=== PATIENT | male | born 1975 | race Caucasian/White ===

== ENCOUNTER 2020-01-19 17:25 | Emergency (ER) | payer OTHER, SELFPAY ==
--- NOTE | ~2020-01-19 | XR_ITS ---
EXAMINATION: XR chest 1V portable EXAM DATE: 01/19/2020 19:04 INDICATION: Fever, nausea, vomiting. Muscle spasm. TECHNIQUE: Portable AP frontal chest x-ray was obtained. Comparison is made to prior examination from 09/29/2019. FINDINGS: The lungs are clear. There are no pleural effusions. Cardiac silhouette is prominent but magnified on this AP technique. There is no pneumothorax suspected. The bones and soft tissues are unremarkable. IMPRESSION: No acute cardiopulmonary findings. Reviewed, dictated and finalized at location A. DESK SPECIALIST
[2020-01-19 17:47] VITALS: BP 116/87; PULSE 104; RESP 18; TEMP 38.2; O2SAT 100
--- NOTE | 2020-01-19 19:02 | ED.FEVER ---
HPI - Fever General Chief Complaint: Fever Stated Complaint: vomiting, fever Time Seen by Provider: 01/19/20 18:23 Source: patient and RN notes reviewed Mode of arrival: ambulatory Limitations: no limitations History of Present Illness HPI Narrative: Pt is a 44 y/o male presenting to the ED c/o fever. Pt reports he has been experiencing a subjective fever for 3 days. Pt also reports N/V and muscle spasms. Pt states he is currently receiving chemotherapy due to being diagnosed with Acute B-cell Leukemia. Pt states his last dose of chemotherapy was yesterday, and notes he sees Dr. Fernández as his Oncologist at [facility]. Pt notes he does not have a port-a-cath in place. Pt notes is is common for him to experience muscle spasms after chemotherapy treatments. Pertinent past history: other (Acute B-cell Leukemia) Onset (ago): day(s) (3) Associated symptoms: nausea, vomiting and other (Muscle spasms) Related Data Allergies Allergy/AdvReac Type Severity Reaction Status Date / Time CATS Allergy Mild Unknown Uncoded 01/19/20 18:27 SHELLFISH Allergy Mild Unknown Uncoded 01/19/20 18:27 Review of Systems Review of Systems: All systems reviewed & are unremarkable except as noted in HPI and below Constitutional: Constitutional: Reports fever(s) (Subjective) Gastrointestinal: Gastrointestinal: Reports nausea and Reports vomiting Musculoskeletal: Musculoskeletal: Reports other (Muscle spasms) [facility] Past Medical History Medical History Anxiety GERD (gastroesophageal reflux disease) History of chemotherapy Leukemia Migraine Surgical History Surgical History History of colon resection Social History Social History Smoking status: Never smoker Gender identity (if verbalized by the patient): Male 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 I did discuss this case with Dr. Da Silva. BMT service at [place] recommended to start cefepime and will accept the patient in transfer. Patient initially agreed for transfer few minutes later he said he has been dealing with this and his diet of waiting in the hospital he wants to go home he said he will sign out AMA. I advised him to think twice before make a decision but he is adamant that he wants to go home. is agreeable to take him home. Vital Signs Vital signs: Vital Signs Temperature 38.2 C H 01/19/20 17:47 Pulse Rate 104 H 01/19/20 17:47 Respiratory Rate 18 01/19/20 17:47 Blood Pressure 116/87 01/19/20 17:47 Pulse Oximetry 100 01/19/20 17:47 Temperature 38.2 C H 01/19/20 17:47 Pulse Rate 105 H 01/19/20 19:07 Respiratory Rate 16 01/19/20 19:07 Blood Pressure 94/69 L 01/19/20 19:07 Pulse Oximetry 100 01/19/20 19:07 MDM - Fever Lab Data Result diagrams: 01/19/20 19:09 01/19/20 19:09 Labs: Lab Results 01/19/20 01/19/20 01/19/20 Range/Units 19:09 19:09 19:09 WBC 2.8 L (4.5-10.0) K/mm3 RBC 3.99 L (4.6-6.20) M/mm3 Hgb 14.3 (14.0-18.0) g/dL Hct 40.2 L (42.0-52.0) % MCV 100.8 H (80-100) fl MCH 35.8 H (26-34) pg MCHC 35.6 (32-36) g/dl RDW 12.6 (11.5-14.5) % Plt Count 144 L (150-375) k/mm3 MPV 9.3 (7.4-10.4) fl Immature Gran % (Auto) 0.4 (0-0.5) % Neut % (Auto) 66.2 (45.5-73.1) % Lymph % (Auto) 17.9 L (18.3-44.2) % [place] % (Auto) 15.1 H (2.6-8.5) % Eos % (Auto) 0.0 (0-4.4) % Baso % (Auto) 0.4 (0.2-1.2) % Lymph # (Auto) 0.50 L (0.9-3.2) K/mm3 [place] # (Auto) 0.4 (0.1-0.6) K/mm3 Eos # (Auto) 0.0 (0-0.3) K/mm3 Baso # (Auto) 0.0 (0.0-0.1) K/mm3 Abs Immat Gran (auto) 0.01 (0.00-0.031) K/mm3 Absolute Neuts (auto) 1.9 (1.3-6.7) K/mm3 Absolute Nucleated RBC 0.0 (0.0-0.012) K/mm3 Nucleated RBC % 0.0 (0.0-0.2) % P
[2020-01-19] MEDS: SODIUM CHLORIDE 0.9% IV 1,000 ML 150 ML IV CONT (19:03)
[2020-01-19] MEDS: MORPHINE SULFATE 4 MG/ML INJ IV PUSH (19:03)
[2020-01-19] MEDS: ONDANSETRON INJ 4 MG/2 ML VIAL IV PUSH (19:03)
[2020-01-19 19:07] VITALS: BP 94/69; PULSE 105; RESP 16; O2SAT 100
[2020-01-19 19:30] VITALS: BP 104/69; PULSE 97; RESP 22; O2SAT 100
[2020-01-19 19:30] LABS: Basophils Percent Auto 0.4 % (0.2-1.2); Hematocrit 40.2 % (42.0-52.0); Hemoglobin 14.3 g/dL (14.0-18.0); Immature Granulocyte Absolute 0.01 K/mm3 (0.00-0.031); Immature Granulocyte Percent A 0.4 % (0-0.5); Lymphocytes Percent Auto 17.9 % (18.3-44.2); Mean Corpuscular HGB Conc 35.6 g/dl (32-36); Mean Corpuscular Hemoglobin 35.8 pg (26-34); Mean Corpuscular Volume 100.8 fl (80-100); Mean Platelet Volume 9.3 fl (7.4-10.4); Monocytes Absolute Auto 0.4 K/mm3 (0.1-0.6); Monocytes Percent Auto 15.1 % (2.6-8.5); Neutrophils Absolute Auto 1.9 K/mm3 (1.3-6.7); Neutrophils Percent Auto 66.2 % (45.5-73.1); Platelet Count Result 144 k/mm3 (150-375); Red Blood Count 3.99 M/mm3 (4.6-6.20); Red Cell Distribution Width 12.6 % (11.5-14.5); White Blood Count 2.8 K/mm3 (4.5-10.0)
[2020-01-19 19:41] LABS: INR 1.2; Prothrombin Time 14.6 Seconds (11.1-14.7)
[2020-01-19 19:41] LABS: Lactic Acid Reflex 1.5 mmol/L (0.7-2.1)
[2020-01-19 19:42] LABS: Alanine Aminotransferase 69 U/L (4-50); Albumin Level 4.3 g/dL (3.5-5.1); Alkaline Phosphatase 54 U/L (38-126); Aspartate Amino Transferase 40 U/L (17-59); Bilirubin,Total 0.8 mg/dL (0.2-1.3); Blood Urea Nitrogen 12 mg/dL (9-20); Calcium 8.4 mg/dL (8.4-10.2); Carbon Dioxide 26 mmol/L (22-30); Chloride 98 mmol/L (98-107); Estimated CRCL calculation 64 ml/min; Estimated Glomerular Filt Rate 55; Glucose 111 mg/dL (75-110); Potassium 3.9 mmol/L (3.4-5.0); Sodium 133 mmol/L (137-145)
[2020-01-19] MEDS: ACETAMINOPHEN 325 MG TABLET 650 MG PO (21:31)
[2020-01-19 22:00] VITALS: BP 115/78; PULSE 93; RESP 20; O2SAT 97
[2020-01-19 22:19] LABS: Add Urine Microscopic? NO; Appearance Urine Clear (Clear); Bilirubin Urine Negative (Negative); Blood Urine Negative (Negative); Color Urine Yellow (Yellow); Glucose Urine UA Negative (Negative); Ketones Urine Negative (Negative); Leukocyte Esterase Ur Negative LEU/UL (Negative); Nitrate Urine Negative (Negative); Protein Urine Negative (Negative); Specific Grav Ur 1.012 (1.001-1.035); Urobilinogen Urine Negative mg/dL (<2.0)
== END 2020-01-19 22:00 | disposition left against medical advice (07) ==
PROVIDERS: Emergency Provider Family Medicine
DX: R50.9 Fever, unspecified (principal); C91.00 Acute lymphoblastic leukemia not having achieved remission; Z79.899 Other long term (current) drug therapy; Z90.49 Acquired absence of other specified parts of digestive tract; K21.9 Gastro-esophageal reflux disease without esophagitis
CPT/HCPCS: 36415; 71045; 80053; 81003; 83605; 85025; 85610; 87804; 96361; 96365; 96375; 99284; A9270; J0692; J2270; J2405; J7030

== ENCOUNTER 2020-01-21 19:19 | Emergency (ER) | payer OTHER, SELFPAY ==
--- NOTE | ~2020-01-21 | XR_ITS ---
EXAMINATION: XR chest 2V EXAM DATE: 01/21/2020 20:53 INDICATION: Cough and fever. TECHNIQUE: Frontal and lateral projections of the chest obtained and reviewed. Comparison is made to prior examination from 01/19/2020. FINDINGS: The lungs are clear. There are no pleural effusions. The cardiomediastinal silhouette is within normal limits. There is no pneumothorax suspected. The bones and soft tissues are unremarkab le. IMPRESSION: No acute cardiopulmonary findings. Reviewed, dictated and finalized at location A.
[2020-01-21 19:23] VITALS: BP 115/77; PULSE 111; RESP 16; TEMP 38.1; O2SAT 96
[2020-01-21 20:04] VITALS: BP 137/94; PULSE 106; RESP 16; TEMP 37.1; O2SAT 96
[2020-01-21 20:10] VITALS: BP 138/90; PULSE 88; RESP 16; O2SAT 98
--- NOTE | 2020-01-21 20:10 | ED.FEVER ---
HPI - Fever General Chief Complaint: Fever Stated Complaint: FEVER, HEADACHE Time Seen by Provider: 01/21/20 20:05 Source: patient and RN notes reviewed Mode of arrival: ambulatory Limitations: no limitations History of Present Illness HPI Narrative: A 44 y/o male presents to the ED with a fever for the past 4 days. He states that he has been having nasal congestion and a productive cough for the past 6 days. He reports that 4 days ago he took his chemo treatment and shortly after he began to have body aches, a ACOSTA, and a fever that reached 104. He notes that he came to the ED 2 days ago for the same symptoms and was d/c home. He also notes that he has vomited after coughing and that he has chronic diarrhea and muscle cramps. He denies any SOB, CP, ABD pain, dysuria, hematuria, or urinary frequency. MD elicited complaint: fever Pertinent past history: immunosuppression Onset (ago): day(s) (4) Measured temperature: 104 F Context: on chemotherapy Associated symptoms: headache, cough (productive), vomiting, diarrhea (chronic) and other (nasal congestion, body aches, and chronic muscle cramps) Related Data Home Medications Medication Instructions Recorded Confirmed dapsone 01/21/20 lorazepam 01/21/20 methotrexate sodium 01/21/20 omeprazole 01/21/20 prednisone 01/21/20 valacyclovir 01/21/20 01/21/20 Allergies Allergy/AdvReac Type Severity Reaction Status Date / Time CATS Allergy Mild Unknown Uncoded 01/21/20 20:07 SHELLFISH Allergy Mild Unknown Uncoded 01/21/20 20:07 Review of Systems Review of Systems: All systems reviewed & are unremarkable except as noted in HPI and below Constitutional: Constitutional: Reports body ache(s) and Reports fever(s) (104) ENT: Reports nasal congestion Cardiovascular: Cardiovascular: Denies chest pain Respiratory: Respiratory: Reports cough (productive) and Denies dyspnea Gastrointestinal: Gastrointestinal: Denies abdominal pain, Reports diarrhea (chronic) and Reports vomiting Genitourinary: Genitourinary: Denies hematuria, Denies dysuria and Denies urinary frequency Musculoskeletal: Musculoskeletal: Reports muscle cramps (chronic) Neurologic: Reports headache(s) [facility] Past Medical History Medical History (Updated 01/21/20 @ 22:21 by Celi Quiroz MD) Anxiety GERD (gastroesophageal reflux disease) History of chemotherapy Leukemia Migraine Surgical History Surgical History History of colon resection History of orthopedic surgery Social History Social History Smoking status: Never smoker Gender identity (if verbalized by the patient): Male Comments PCP: Dr. Graves. Oncologist: Dr. Fernández. Exam Const: General: cooperative, no acute distress and alert Nutritional Appearance: well nourished Orientation/consciousness: patient oriented x3 Limitations: no limitations HENMT: Mouth: Yes lip normal and Yes dry mucous membranes Resp: Effort & Inspection: normal respiratory effort Auscultation: rhonchi (AMIE bases) Cardio: Rate: regular rate Rhythm: regular rhythm GI: GI Palp: Yes Soft to palpation and No Tenderness to palpation present (GI) Auscultation: normal bowel sounds Skin: General skin exam: normal color Neuro: General: patient oriented x3 Cognition (Neuro): normal cognition Speech: normal speech Extrem: General: normal to inspection, full ROM and no clubbing, cyanosis or edema Psych: Mental Status: mental status grossly normal Affect: normal affect Attitude: cooperative Course Course Emergency Course: Patient on chemotherapy for leukemia. Patient with fever for the past few days. Patient was in the ED 2 days ago. Patient will be prescribed Augmentin for symptoms of sinusitis and patient is to follow-up at his appointment in the oncology clinic tomorrow. Patient feels comfortable with discharge plan. Advised to return to the ED
[2020-01-21 20:44] LABS: Basophils Percent Auto 0.5 % (0.2-1.2); Eosinophils Percent Auto 0.5 % (0-4.4); Hematocrit 43.1 % (42.0-52.0); Hemoglobin 15.1 g/dL (14.0-18.0); Immature Granulocyte Absolute 0.02 K/mm3 (0.00-0.031); Immature Granulocyte Percent A 0.9 % (0-0.5); Lymphocytes Absolute Auto 0.52 K/mm3 (0.9-3.2); Lymphocytes Percent Auto 24.2 % (18.3-44.2); Mean Corpuscular Hemoglobin 35.6 pg (26-34); Mean Corpuscular Volume 101.7 fl (80-100); Mean Platelet Volume 9.1 fl (7.4-10.4); Monocytes Absolute Auto 0.4 K/mm3 (0.1-0.6); Monocytes Percent Auto 18.6 % (2.6-8.5); Neutrophils Absolute Auto 1.2 K/mm3 (1.3-6.7); Neutrophils Percent Auto 55.3 % (45.5-73.1); Platelet Count Result 134 k/mm3 (150-375); Red Blood Count 4.24 M/mm3 (4.6-6.20); Red Cell Distribution Width 12.3 % (11.5-14.5); White Blood Count 2.2 K/mm3 (4.5-10.0)
[2020-01-21 20:47] LABS: Add Urine Microscopic? YES; Appearance Urine Clear (Clear); Bilirubin Urine Negative (Negative); Blood Urine Negative (Negative); Color Urine Yellow (Yellow); Glucose Urine UA Negative (Negative); Ketones Urine Trace mg/dL (Negative); Leukocyte Esterase Ur Negative LEU/UL (Negative); Mucus Urine Rare /lpf; Nitrate Urine Negative (Negative); Protein Urine Negative (Negative); RBC Urine 0-2 /hpf (0-2); Specific Grav Ur 1.013 (1.001-1.035); Urobilinogen Urine Negative mg/dL (<2.0); WBC Urine 0-3 /hpf
[2020-01-21 20:54] LABS: INR 1.1; Partial Thromboplastin Time 29.3 SECONDS (22.3-36.8); Prothrombin Time 13.7 Seconds (11.1-14.7)
[2020-01-21 20:56] LABS: Lactic Acid Reflex 1.6 mmol/L (0.7-2.1)
[2020-01-21 20:58] LABS: Alanine Aminotransferase 67 U/L (4-50); Albumin Level 4.8 g/dL (3.5-5.1); Alkaline Phosphatase 55 U/L (38-126); Aspartate Amino Transferase 47 U/L (17-59); Bilirubin,Total 0.8 mg/dL (0.2-1.3); Blood Urea Nitrogen 12 mg/dL (9-20); CRP 2.6 mg/dL (<1.0); Calcium 8.7 mg/dL (8.4-10.2); Carbon Dioxide 28 mmol/L (22-30); Chloride 94 mmol/L (98-107); Estimated CRCL calculation 68 ml/min; Estimated Glomerular Filt Rate 60; Glucose 95 mg/dL (75-110); Potassium 3.6 mmol/L (3.4-5.0); Sodium 134 mmol/L (137-145)
[2020-01-21] MEDS: LACTATED RINGERS 1,000 ML 999 ML IV CONT (21:32)
[2020-01-21] MEDS: ALBUTEROL SULFATE NEB 2.5 MG/0.5 ML INH 5 MG INHALATION (21:36)
[2020-01-21 21:37] VITALS: PULSE 99; RESP 22
[2020-01-21] MEDS: IPRATROPIUM BR 0.02% INH SOLN 0.5 MG/2.5 ML VIAL INHALATION (21:37)
[2020-01-21 21:45] VITALS: PULSE 104; RESP 20
[2020-01-21] MEDS: ACETAMINOPHEN 500 MG TABLET 1000 MG PO (22:17)
[2020-01-21 22:19] VITALS: BP 156/69; PULSE 114; RESP 21; TEMP 38.4; O2SAT 97
[2020-01-21] MEDS: AMOXICILLIN/CLAVULANATE K 875-125 MG TAB 1 TABLET PO (22:50)
== END 2020-01-21 22:50 | disposition home or self-care (01) ==
PROVIDERS: Emergency Provider Emergency Medicine
DX: R50.9 Fever, unspecified (principal); Z79.899 Other long term (current) drug therapy; C95.90 Leukemia, unspecified not having achieved remission; J01.90 Acute sinusitis, unspecified; K21.9 Gastro-esophageal reflux disease without esophagitis; Z90.49 Acquired absence of other specified parts of digestive tract; F41.9 Anxiety disorder, unspecified
CPT/HCPCS: 36415; 71046; 80053; 81001; 83605; 85025; 85610; 85730; 86140; 87040; 87804; 94640; 99283; A9270; J7120

== ENCOUNTER 2021-05-22 18:18 | Emergency (ER) | payer OTHER, SELFPAY ==
[2021-05-22] VITALS (9 sets, daily range): BP systolic 105–131; BP diastolic 61–86; PULSE 99–121; RESP 14–30; TEMP 37.2–38.3; O2SAT 92–96
--- NOTE | ~2021-05-22 | XR_ITS ---
XR chest 1V portable 05/22/2021 19:05 Indication: Fever, cough and shortness of breath Procedure: AP portable chest Comparison: Comparison to multiple prior studies sequentially, with oldest reviewed study dated 08/15. Findings: Bibasilar infiltrates. Shallow inspiration. Heart size is normal. No pleural effusion or pn eumothorax. No acute osseous abnormality. Impression: 1: Bibasilar infiltrates may represent atelectasis or pneumonia. Reviewed, dictated and finalized at location A. Impression: 1: Bibasilar infiltrates may represent atelectasis or pneumonia.
--- NOTE | 2021-05-22 18:47 | WPDEDEXPGENP ---
HPI - General Ped General Chief complaint: Fever <NICOLE Jose Last Filed: 05/22/21 20:47> Stated complaint: SOB <NICOLE Jose Last Filed: 05/22/21 20:47> Time Seen by Provider: 05/22/21 18:25 <NICOLE Jose Last Filed: 05/22/21 20:47> Source: patient, family, RN notes reviewed and old records reviewed <NICOLE Jose Last Filed: 05/22/21 20:47> Mode of arrival: ambulatory <NICOLE Jose Last Filed: 05/22/21 20:47> Limitations: no limitations <NICOLE Jose Last Filed: 05/22/21 20:47> Nursing Documentation: reviewed/agree <NICOLE Jose Last Filed: 05/22/21 20:47> History of Present Illness HPI narrative: Patient is a 45-year-old male who presents to emergency department for evaluation of fever chills body aches patient was seen by his oncologist yesterday at the [facility] patient later upon returning home developed nausea vomiting diarrhea with fever that persisted throughout the night into the morning. Patient with history of leukemia. Patient receives daily maintenance chemotherapy. Patient denies rectal bleeding melena hematemesis patient is currently on amoxicillin for an upper respiratory infection followed by primary care which she has had for months. . Patient on arrival does not appear distressed patient took Tylenol this morning. <NICOLE Jose Last Filed: 05/22/21 20:47> Related Data Home medications: Home Medications Medication Instructions Recorded Confirmed dapsone 01/21/20 lorazepam 01/21/20 methotrexate sodium 01/21/20 omeprazole 01/21/20 prednisone 01/21/20 valacyclovir 01/21/20 01/21/20 eltrombopag [Promacta] 05/22/21 ergocalciferol (vitamin D2) 05/22/21 gabapentin 05/22/21 magnesium oxide mg 05/22/21 metformin mg PO 05/22/21 methocarbamol mg 05/22/21 sitagliptin [Januvia] mg 05/22/21 <NICOLE Jose Last Filed: 05/22/21 20:47> Allergies/adverse reactions: Allergies Allergy/AdvReac Type Severity Reaction Status Date / Time CATS Allergy Mild Unknown Uncoded 05/22/21 18:57 SHELLFISH Allergy Mild Unknown Uncoded 05/22/21 18:57 <Esdras Bazzi PA-C - Last Filed: 05/22/21 20:47> Pediatric Review of Systems All systems ED: reviewed and negative except as stated <Esdras Bazzi PA-C - Last Filed: 05/22/21 20:47> PMFSH Past Medical History Medical History: Medical History Anxiety GERD (gastroesophageal reflux disease) History of chemotherapy Leukemia Migraine <Esdras Bazzi PA-C - Last Filed: 05/22/21 20:47> Surgical History Surgical History: Surgical History History of colon resection History of orthopedic surgery <Esdras Bazzi PA-C - Last Filed: 05/22/21 20:47> Social History Social History: Social History Smoking status: Never smoker Gender identity (if verbalized by the patient): Male <Esdras Bazzi PA-C - Last Filed: 05/22/21 20:47> Pediatric Exam Narrative: Physical exam: GENERAL: Ill-appearing, well-nourished, and in no acute distress. HEAD: Normocephalic, atraumatic. EYES: PERRLA and EOMI. ENT: Nares clear, no rhinorrhea or epistaxis. Mucous membranes moist. Oropharynx without tonsillar hypertrophy exudate or other lesions CHEST: Clear to auscultation. No respiratory distress. No wheezes rales or rhonchi HEART: Regular rate and rhythm. No murmur heard. Normal peripheral pulses. ABDOMEN: Soft, nontender, nondistended EXTREMITIES: Normal range of motion. No edema. SKIN: Warm, dry, no rash. NEURO: No focal deficits. Alert and oriented x3. Cranial nerves II through XII grossly intact PSYCH: Normal mood and affect. <Esdras Bazzi PA-C - Last Filed: 05/22/21 20
[2021-05-22] MEDS: SODIUM CHLORIDE 0.9% IV 1,000 ML 999 ML IV CONT ×2 (19:03→20:41)
[2021-05-22] MEDS: FAMOTIDINE 20 MG/2 ML VIAL IV PUSH (19:04)
[2021-05-22 19:14] LABS: Basophils Percent Auto 0.2 % (0.2-1.2); Eosinophils Percent Auto 0.2 % (0-4.4); Hematocrit 34.8 % (42.0-52.0); Hemoglobin 10.9 g/dL (14.0-18.0); Immature Granulocyte Absolute 0.01 K/mm3 (0.00-0.031); Immature Granulocyte Percent A 0.2 % (0-0.5); Immature Platelet Fraction Pct 3.9 % (0.9-11.2); Lymphocytes Percent Auto 14.6 % (18.3-44.2); Mean Corpuscular HGB Conc 31.3 g/dl (32-36); Mean Corpuscular Hemoglobin 32.9 pg (26-34); Mean Corpuscular Volume 105.1 fl (80-100); Mean Platelet Volume 10.3 fl (7.4-10.4); Monocytes Absolute Auto 0.5 K/mm3 (0.1-0.6); Monocytes Percent Auto 10.4 % (2.6-8.5); Neutrophils Absolute Auto 3.6 K/mm3 (1.3-6.7); Neutrophils Percent Auto 74.4 % (45.5-73.1); Platelet Count Result 70 k/mm3 (150-375); Red Blood Count 3.31 M/mm3 (4.6-6.20); Red Cell Distribution Width 14.3 % (11.5-14.5); White Blood Count 4.8 K/mm3 (4.5-10.0)
[2021-05-22 19:24] LABS: Alanine Aminotransferase 36 U/L (4-50); Albumin Level 4.2 g/dL (3.5-5.1); Alkaline Phosphatase 47 U/L (38-126); Anion Gap 10 mmol/L (8-16); Aspartate Amino Transferase 33 U/L (17-59); Blood Urea Nitrogen 20 mg/dL (9-20); CRP 5.6 mg/dL (<1.0); Calcium 8.7 mg/dL (8.4-10.2); Carbon Dioxide 23 mmol/L (22-30); Chloride 101 mmol/L (98-107); Estimated CRCL calculation 73 ml/min; Estimated Glomerular Filt Rate > 60; Glucose 149 mg/dL (75-110); Potassium 3.7 mmol/L (3.4-5.0); Sodium 134 mmol/L (137-145)
[2021-05-22 19:45] LABS: Lactic Acid Reflex 1.4 mmol/L (0.7-2.1)
[2021-05-22 19:46] LABS: INR 1.3
[2021-05-22 19:47] LABS: Partial Thromboplastin Time 31.3 SECONDS (22.3-36.8)
[2021-05-22 20:28] LABS: Add Urine Microscopic? NO; Appearance Urine Clear (Clear); Bilirubin Urine Negative (Negative); Blood Urine Negative (Negative); Color Urine Yellow (Yellow); Glucose Urine UA Negative (Negative); Ketones Urine Negative (Negative); Leukocyte Esterase Ur Negative LEU/UL (Negative); Nitrate Urine Negative (Negative); Protein Urine Negative (Negative); Specific Grav Ur 1.017 (1.001-1.035); Urobilinogen Urine Negative mg/dL (<2.0)
[2021-05-22 20:42] LABS: Alveolar/Arterial O2 Gradient 37.1 mmHg; Base Excess ABG -2.4 mEq/l (+/-2.0); Fractional Inspired Oxygen 21 %; HCO3 ABG 21.1 mEq/l (22.0-26.0); Methemoglobin ABG 0.8 %THb (0-1.5); Oxygen Content ABG 14.8 %vol (16.0-22.0); Oxygen Saturation ABG 95.5 % (95.0-100.0); PCO2 ABG 32.2 mmHg (35.0-45.0); PO2 ABG 74.1 mmHg (80.0-100.0); PO2 FiO2 Ratio Arterial Blood 3.53 %; Reduced Hemoglobin 7.2 %THb (0-5.0); Total Hemoglobin 11.5 g/dL (12.0-18.0); pH ABG 7.434 (7.350-7.450)
[2021-05-22 20:51] LABS: Device ROOM AIR; Modified Allen's Test Pass; Site Drawn RIGHT RADIAL
[2021-05-22] MEDS: ALBUTEROL SULFATE NEB 2.5 MG/0.5 ML INH 5 MG INHALATION (21:10)
[2021-05-22] MEDS: IPRATROPIUM BR 0.02% INH SOLN 0.5 MG/2.5 ML VIAL INHALATION (21:10)
[2021-05-22] MEDS: BENZONATATE 100 MG CAPSULE 200 MG PO (22:00)
[2021-05-22] MEDS: HYDROcodone/acetaminophen (*CRX) 5-325 MG TABLET 1 TAB PO (22:04)
[2021-05-22] MEDS: predniSONE 10 MG TABLET PO (22:04)
[2021-05-23 17:20] LABS: SARS-CoV-2 RNA PCR Negative
== END 2021-05-22 23:05 | disposition home or self-care (01) ==
PROVIDERS: Emergency Medicine Emergency Medical Services; Emergency Provider General Practice; PCP Family Medicine Sports Medicine
DX: J18.9 Pneumonia, unspecified organism (principal); R19.7 Diarrhea, unspecified; F41.9 Anxiety disorder, unspecified; Z85.6 Personal history of leukemia; Z20.828 Contact with and (suspected) exposure to other viral communicable diseases; Z79.84 Long term (current) use of oral hypoglycemic drugs
CPT/HCPCS: 36415; 36600; 71045; 80053; 81003; 82375; 82805; 83050; 83605; 85025; 85055; 85610; 85730; 86140; 87040; 87324; 94640; 96361; 96365; 96375; 99284; A9270; C9803; J0131; J7030; J7512; U0003; U0005

== ENCOUNTER 2021-07-21 16:04 | Emergency (ER) | payer OTHER, SELFPAY ==
[2021-07-21 16:07] VITALS: BP 152/115; PULSE 94; RESP 16; TEMP 37.1; O2SAT 98
[2021-07-21] MEDS: AMOXICILLIN/CLAVULANATE K 875-125 MG TAB 1 TABLET PO (17:47)
[2021-07-21] MEDS: HYDROmorphone HCL INJ (*CRX) 1 MG/ML SYR IM (17:48)
[2021-07-21] MEDS: ONDANSETRON HCL ODT 4 MG TABLET PO (17:48)
--- NOTE | 2021-07-21 18:09 | ED.EAR ---
HPI - Ear Problem General Chief complaint: Ear Stated complaint: R EAR PAIN Time Seen by Provider: 07/21/21 17:25 Source: patient and RN notes reviewed Mode of arrival: ambulatory Limitations: no limitations History of Present Illness HPI Narrative: This is a 46 year old male who presents for evaluation of right ear pain. He states on Wednesday he was on a flight when he felt a pop in his right ear, and he reports discharge from his ear. He states he has not having much pain but he developed right ear pain yesterday. He has associated nausea but denies dizziness, vertigo or fever. He took one his OxyContin for his pain with relief. Related Data Home Medications Medication Instructions Recorded Confirmed dapsone 01/21/20 lorazepam 01/21/20 methotrexate sodium 01/21/20 omeprazole 01/21/20 prednisone 01/21/20 valacyclovir 01/21/20 01/21/20 eltrombopag [Promacta] 05/22/21 ergocalciferol (vitamin D2) 05/22/21 gabapentin 05/22/21 magnesium oxide mg 05/22/21 metformin mg PO 05/22/21 methocarbamol mg 05/22/21 sitagliptin [Januvia] mg 05/22/21 Allergies Allergy/AdvReac Type Severity Reaction Status Date / Time CATS Allergy Mild Unknown Uncoded 07/21/21 16:35 SHELLFISH Allergy Mild Unknown Uncoded 07/21/21 16:35 Review of Systems Review of Systems: All systems reviewed & are unremarkable except as noted in HPI and below Gastrointestinal: Gastrointestinal: Reports abdominal pain (chronic) [facility] Past Medical History Medical History Anxiety GERD (gastroesophageal reflux disease) History of chemotherapy Leukemia Migraine Surgical History Surgical History History of colon resection History of orthopedic surgery Social History Social History Smoking status: Never smoker Gender identity (if verbalized by the patient): Male Exam Const: General: no acute distress and alert Orientation/consciousness: patient oriented x3 HENMT: Head: normocephalic and atraumatic Ears: TM abnormal dull and erythematous; with no loss of landmarks, not obstructed by cerumen and not perforated Face and sinus: normal facial exam and face symmetric Mouth: Yes Normal oral and palatal mucosa present, Yes lip normal, Yes oropharynx normal and Yes moist mucous membranes Throat: posterior oropharynx normal, tonsils normal and uvula midline Eyes: Pupils: Equal, round and reactive pupils present EOM: EOMs intact bilaterally Chest: Chest palpation & inspection: normal inspection of the chest Resp: Effort & Inspection: normal respiratory effort Skin: General skin exam: normal color Rashes: no rashes Neuro: General: patient oriented x3, moves all extremities and CN's II-XI intact bilaterally Psych: Mental Status: mental status grossly normal Affect: normal affect Course Reevaluation(s) Reevaluation #1: I Discussed with patient plan to treat with oral antibiotic. I do not seen perforation at this time. He has pain medication at home. Date: 07/21/21 Time: 18:13 Vital Signs Vital signs: Vital Signs Temperature 98.7 F 07/21/21 16:07 Pulse Rate 94 07/21/21 16:07 Respiratory Rate 16 07/21/21 16:07 Blood Pressure 152/115 H 07/21/21 16:07 Pulse Oximetry 98 07/21/21 16:07 Temperature 98.7 F 07/21/21 16:07 Pulse Rate 90 07/21/21 18:25 Respiratory Rate 16 07/21/21 18:25 Blood Pressure 148/96 H 07/21/21 18:25 Pulse Oximetry 99 07/21/21 18:25 Medical Decision Making Vital Signs Vital Signs: Vital Signs Temperature 98.7 F 07/21/21 16:07 Pulse Rate 94 07/21/21 16:07 Respiratory Rate 16 07/21/21 16:07 Blood Pressure 152/115 H 07/21/21 16:07 Pulse Oximetry 98 07/21/21 16:07 Temperature 98.7 F 07/21/21 16:07 Pulse Rate 90 07/21/21 18:25 Respiratory Rate 16 07/21/21 18:25
[2021-07-21 18:25] VITALS: BP 148/96; PULSE 90; RESP 16; O2SAT 99
== END 2021-07-21 18:22 | disposition home or self-care (01) ==
PROVIDERS: Emergency Provider General Practice; PCP Family Medicine Sports Medicine
DX: H66.91 Otitis media, unspecified, right ear (principal); F41.9 Anxiety disorder, unspecified; K21.9 Gastro-esophageal reflux disease without esophagitis
CPT/HCPCS: 96372; 99283; A9270; J1170

== ENCOUNTER 2023-03-04 08:50 | Outpatient (CLI) | payer OTHER, SELFPAY ==
--- NOTE | 2023-03-04 | ECG_ITS ---
Measurements Intervals [place] Rate: 76 P: 55 CT: 151 QRS: -5 QRSD: 89 T: 11 QT: 361 QTc: 406 Interpretive Statements SINUS RHYTHM NO PREVIOUS ECG AVAILABLE FOR COMPARISON Electronically Signed On 03-04-2023 18:30:54 CDT by Jaime Leiva M.D.
[2023-03-04 09:40] LABS: Basophils Percent Auto 0.4 % (0.2-1.2); Eosinophils Absolute Auto 0.1 K/mm3 (0-0.3); Eosinophils Percent Auto 1.7 % (0-4.4); Hematocrit 44.6 % (42.0-52.0); Hemoglobin 15.1 g/dL (14.0-18.0); Immature Granulocyte Absolute 0.03 K/mm3 (0.00-0.031); Immature Granulocyte Percent A 0.6 % (0-0.5); Lymphocytes Absolute Auto 1.73 K/mm3 (0.9-3.2); Lymphocytes Percent Auto 33.3 % (18.3-44.2); Mean Corpuscular HGB Conc 33.9 g/dl (32-36); Mean Corpuscular Hemoglobin 31.5 pg (26-34); Mean Corpuscular Volume 92.9 fl (80-100); Mean Platelet Volume 9.2 fl (7.4-10.4); Monocytes Absolute Auto 0.4 K/mm3 (0.1-0.6); Monocytes Percent Auto 6.9 % (2.6-8.5); Neutrophils Percent Auto 57.1 % (45.5-73.1); Platelet Count Result 153 k/mm3 (150-375); Red Cell Distribution Width 12.3 % (11.5-14.5); White Blood Count 5.2 K/mm3 (4.5-10.0)
[2023-03-04 09:46] LABS: Appearance Urine Clear (Clear); Bilirubin Urine Negative (Negative); Blood Urine Negative (Negative); Color Urine Yellow (Yellow); Glucose Urine UA Negative (Negative); Ketones Urine Negative (Negative); Leukocyte Esterase Ur Negative LEU/UL (Negative); Nitrate Urine Negative (Negative); Protein Urine Negative (Negative); Specific Grav Ur 1.021 (1.001-1.035)
[2023-03-04 09:51] LABS: INR 1.1; Prothrombin Time 13.6 Seconds (11.1-14.7)
[2023-03-04 09:52] LABS: Partial Thromboplastin Time 28.2 SECONDS (22.3-36.8)
[2023-03-04 09:53] LABS: Add Urine Microscopic? NO
[2023-03-04 10:02] LABS: Alanine Aminotransferase 44 U/L (6-50); Albumin Level 4.8 g/dL (3.5-5.1); Alkaline Phosphatase 68 U/L (38-126); Anion Gap 9 mmol/L (8-16); Aspartate Amino Transferase 35 U/L (17-59); Bilirubin,Total 0.9 mg/dL (0.2-1.3); Blood Urea Nitrogen 23 mg/dL (9-20); Carbon Dioxide 30 mmol/L (22-30); Chloride 102 mmol/L (98-107); Estimated Glomerular Filt Rate > 60; Glucose 134 mg/dL (65-110); Potassium 4.6 mmol/L (3.4-5.0); Sodium 141 mmol/L (137-145)
[2023-03-04 10:21] LABS: Vitamin D 25 Hydroxy 28.9 ng/mL
[2023-03-04 10:21] LABS: Creatinine Urine 165.1 mg/dL
[2023-03-04 10:32] LABS: Hepatitis B Surface Antigen Negative (Negative)
[2023-03-04 10:34] LABS: Microalbumin Urine Random 18.2 mg/L (0-16.7)
[2023-03-04 10:37] LABS: HAV RESULT Negative (Negative); Hepatitis B Core IgM Result Negative (Negative)
[2023-03-04 10:41] LABS: HIV 1/2 Ab P24 Ag Result Negative (Negative)
[2023-03-04 10:49] LABS: Hepatitis C Virus Antibody Negative (Negative)
[2023-03-04 11:59] LABS: Erythrocyte Sedimentation Rate 11 mm/hr (0-20)
== END 2023-03-04 08:51 | disposition home or self-care (01) ==
PROVIDERS: PCP Family Medicine Sports Medicine; Visit Provider Family Medicine Sports Medicine
DX: Z01.818 Encounter for other preprocedural examination (principal)
CPT/HCPCS: 36415; 80053; 80074; 81003; 82043; 82306; 85025; 85610; 85652; 85730; 86703; 93005; G0432

== ENCOUNTER 2024-02-26 07:56 | Inpatient (IN) | payer OTHER, SELFPAY ==
[2024-02-26] VITALS (22 sets, daily range): BP systolic 104–171; BP diastolic 69–101; PULSE 98–128; RESP 14–25; TEMP 36.4–39.3; O2SAT 93–100; BMI 24.3
--- NOTE | ~2024-02-26 | XR_ITS ---
EXAMINATION: XR chest 2V DATE: 02/26/2024 08:50 INDICATION: Sepsis with fever and malaise TECHNIQUE: PA and lateral views of the chest were obtained. COMPARISON: None FINDINGS: The lungs are clear with no focal airspace opacities, pulmonary edema, pleural effusion or pneumothor ax. The cardiomediastinal silhouette is normal. Multiple prosthetic disc at C4-C5 through C7-T1. Mild thoracic spondylosis with minimal anterior wedging of a few mid and lower thoracic vertebral bodies. IMPRESSION: 1. No acute cardiopulmonary disease. Reviewed, dictated and finalized at location A.
--- NOTE | ~2024-02-26 | CT_ITS ---
EXAMINATION: CT chest abdomen pelvis w con DATE: 02/26/2024 11:04 INDICATION: Sepsis from unknown source for 3 days of fevers, chills and bodyaches TECHNIQUE: Computed tomography (CT) of the chest, abdomen, and pelvis was performed with 100 mL Omnip aque-350 intravenous contrast. Automated exposure control and iterative reconstruction technique were employed. The dose-length product was 524.39 mGy-cm. COMPARISON: None FINDINGS: CHEST CT: Tree-in-bud and centrilobular groundglass opacities in the left lower lobe consistent with pneumonia. Remainder of the lungs are clear. No pulmonary edema or pleural effusion. Heart size is normal. No p ericardial effusion. Thoracic aorta is normal in caliber with no dissection. No pathologically enlarg ed thoracic lymphadenopathy. Small sliding-type hiatal hernia. Mild thoracic spondylosis with minimal anterior wedging of multiple lower thoracic vertebral bodies. Prosthetic discs are seen at C5-C6 and C6-C7. ABDOMEN/PELVIS CT: Liver, gallbladder, pancreas, bilateral adrenal glands and kidneys are normal. Mild splenomegaly fernando uring 13.8 cm in maximal length. Postoperative change of prior proximal right hemicolectomy with ileo colic anastomosis in the right abdomen. No bowel obstruction. Bladder is normal. No free intraperiton eal gas or fluid. No pathologically enlarged abdominal or pelvic lymphadenopathy. Discectomy and like ly prosthetic disc placement at L4-L5. IMPRESSION: 1. Left lower lobe pneumonia. 2. No acute intra-abdominal/pelvic process. 3. Small sliding-type hiatal hernia. Reviewed, dictated and finalized at location A.
--- NOTE | 2024-02-26 08:12 | ED.FEVER ---
HPI - Fever General Chief Complaint: Fever Stated Complaint: Fever Time Seen by Provider: 02/26/24 08:05 History of Present Illness HPI Narrative: Patient is a 48-year-old male with history of chronic cervical neck pain status post multiple surgeries over the last 1 year, last procedure in December 2023, B-cell leukemia, s/p bone marrow transplant, not currently on chemotherapy or antirejection medication here with fever. Patient notes that the fever began about 3 days ago, has been waxing and waning, T-max at home was 102.8F. He has taken Tylenol which helped with the fever but he quickly has a return of his fever after taking Tylenol. Last Tylenol dose was around 7:00 a.m. today. He notes a cough which is productive in nature of yellow sputum, occasionally after multiple episodes of coughing he has a pink discoloration to his sputum. He denies any abdominal pain, dysuria, diarrhea. He does note some left-sided ear pain. He denies sick contacts prior to illness onset but does note that his daughter seems to be coming down with a fever today. Related Data Home Medications Medication Instructions Recorded Confirmed dapsone 100 mg tablet 01/21/20 lorazepam 1 mg tablet 01/21/20 methotrexate sodium 2.5 mg tablet 01/21/20 omeprazole 40 mg capsule,delayed 01/21/20 release prednisone 20 mg tablet 01/21/20 valacyclovir 500 mg tablet 01/21/20 01/21/20 eltrombopag olamine 75 mg tablet 05/22/21 (Promacta) ergocalciferol (vitamin D2) 1,250 05/22/21 mcg (50,000 unit) capsule gabapentin 300 mg capsule 05/22/21 magnesium oxide 400 mg (241.3 mg mg 05/22/21 magnesium) tablet metformin 500 mg tablet,extended mg PO 05/22/21 release 24 hr methocarbamol 500 mg tablet mg 05/22/21 sitagliptin phosphate 100 mg mg 05/22/21 tablet (Januvia) Allergies Allergy/AdvReac Type Severity Reaction Status Date / Time CATS Allergy Mild Unknown Uncoded 03/26/23 07:54 SHELLFISH Allergy Mild Unknown Uncoded 03/26/23 07:54 Review of Systems Review of Systems: All systems reviewed & are unremarkable except as noted in HPI and below PMFSH Past Medical History Medical History (Updated 02/26/24 @ 13:14 by Katy Sweet MD) Anxiety GERD (gastroesophageal reflux disease) History of chemotherapy Leukemia Migraine Surgical History Surgical History (System 03/26/23 @ 07:54 by Juan Donohue) History of colon resection History of orthopedic surgery Social History Social History (System 03/26/23 @ 07:54 by uJan Donohue) Smoking status: Never smoker Gender identity (if verbalized by the patient): Male Exam Narrative: GENERAL: Well-appearing, well-nourished, and in no acute distress. HEAD: Normocephalic, atraumatic. EYES: PERRLA and EOMI. ENT: Nares clear. Mucous membranes moist. NECK: Supple. CHEST: Clear to auscultation. No respiratory distress. HEART: Tachycardic. Normal peripheral pulses. ABDOMEN: Soft, nontender, nondistended. EXTREMITIES: Normal range of motion. No edema. SKIN: Warm, dry, no rash. NEURO: No focal deficits. Alert and oriented x3. PSYCH: Normal mood and affect. 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 Patient here with fever x3 days, muscle aches, left ear pain. 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 Reported back surgery in December, does not appear to have been in our system. Patient seen evaluated, tachycardic, otherwise nontoxic appearing in no respiratory distress. She does note he has had some decreased p.o. intake since fever onset. Sepsis workup ordered, suspect viral or pulmonary source. Will do IV fluids, viral swab. Patient agreeable the workup and plan. No leukocytosis however 16% bands. Platelet count 97, patient states that he has got a chronic ongoing issue with his platelet production since his bone marrow transplant. Worsening creatinine since last draw about a year ago. CRP elevated at 6.4. CXR negative. Pending viral swab akbar
[2024-02-26 09:04] LABS: Hematocrit 46.3 % (42.0-52.0); Hemoglobin 16.3 g/dL (14.0-18.0); Immature Platelet Fraction Pct 3.3 % (0.9-11.2); Mean Corpuscular HGB Conc 35.2 g/dl (32-36); Mean Corpuscular Hemoglobin 31.7 pg (26-34); Mean Corpuscular Volume 90.1 fl (80-100); Mean Platelet Volume 10.1 fl (7.4-10.4); Platelet Count Result 97 k/mm3 (150-375); Red Blood Count 5.14 M/mm3 (4.6-6.20); Red Cell Distribution Width 12.1 % (11.5-14.5); White Blood Count 8.1 K/mm3 (4.5-10.0)
[2024-02-26 09:11] LABS: Lactic Acid Reflex 1.6 mmol/L (0.7-2.0)
[2024-02-26 09:14] LABS: Alanine Aminotransferase 30 U/L (6-50); Alkaline Phosphatase 76 U/L (38-126); Anion Gap 15 mmol/L (4-12); Aspartate Amino Transferase 31 U/L (17-59); Bilirubin,Total 1.8 mg/dL (0.2-1.3); Blood Urea Nitrogen 25 mg/dL (9-20); CRP 6.4 mg/dL (<1.0); Calcium 9.7 mg/dL (8.4-10.2); Carbon Dioxide 19 mmol/L (22-30); Chloride 101 mmol/L (98-107); Estimated CRCL calculation 55 ml/min; Estimated Glomerular Filt Rate 50; Glucose 149 mg/dL (65-110); INR 1.1; Potassium 4.1 mmol/L (3.4-5.0); Prothrombin Time 14.2 Seconds (11.1-14.7); Sodium 135 mmol/L (137-145)
[2024-02-26 09:15] LABS: Partial Thromboplastin Time 32.5 Seconds (22.3-36.8)
[2024-02-26] MEDS: LACTATED RINGERS 1,000 ML 999 ML IV CONT ×2 (09:20→09:56)
[2024-02-26 09:21] LABS: Atypical Lymphocytes Present; Band Neutrophils Percent 16 % (0-6); Lymphocytes Absolute Manual 0.72 K/mm3 (1.1-4.5); Monocytes Absolute Manual 0.64 K/mm3 (0.1-0.90); Monocytes Percent Manual 8 % (3-9); Neutrophils Absolute Manual 6.72 K/mm3 (1.3-6.7); Neutrophils Percent Manual 67 % (46-73); Platelet Estimate Slightly Decreased (Adequate); Schistocytes None Seen; Total Cells Counted 100
[2024-02-26 09:38] LABS: Influenza A QL RT-PCR Negative (Negative); Influenza B QL RT-PCR Negative (Negative); RSV RNA, RT-PCR Negative (Negative); SARS-CoV-2 RNA PCR Negative (Negative)
[2024-02-26 09:56] LABS: Erythrocyte Sedimentation Rate 14 mm/hr (0-20)
[2024-02-26] MEDS: CEFEPIME 2 GM/NS 50 ML 2 GM/50 ML BAG IVPB ×2 (09:56→18:46)
[2024-02-26 10:20] LABS: Appearance Urine Cloudy (Clear); Bacteria Urine None Seen /hpf; Bilirubin Urine Negative (Negative); Blood Urine Negative (Negative); Color Urine Dark Yellow (Yellow); Glucose Urine UA Negative (Negative); Hyaline Casts Urine Present /lpf; Ketones Urine 2+ mg/dL (Negative); Leukocyte Esterase Ur Negative LEU/UL (Negative); Nitrate Urine Negative (Negative); Protein Urine 1+ mg/dL (Negative); Squamous Epithelial Cell Urine None Seen /hpf (Few); WBC Urine 0-5 /hpf (0-3); pH Urine 5.5 (5.0-9.0)
[2024-02-26 10:21] LABS: Add Urine Microscopic? YES; Specific Grav Ur 1.033 (1.001-1.035)
[2024-02-26] MEDS: VANCOMYCIN 2,000 MG/NS 500 ML 2,000 MG/500 ML BAG 250 MG IVPB (10:31)
[2024-02-26] MEDS: LORazepam INJ (*CRX) 2 MG/ML VIAL 1 MG IV PUSH (12:47)
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
[2024-02-26] MEDS: AZITHROMYCIN 500 MG/NS 250 ML 500 MG/250 ML BAG 250 MG IVPB (13:16)
[2024-02-26] MEDS: HYDROmorphone HCL INJ (*CRX) 1 MG/ML SYR IV PUSH (13:52)
[2024-02-26] MEDS: ONDANSETRON INJ 4 MG/2 ML VIAL IV PUSH (13:57)
[2024-02-26] MEDS: LACTATED RINGERS 1,000 ML 100 ML IV CONT (15:17)
--- NOTE | 2024-02-26 15:55 | ADMGEN ---
This patient, Kofi Escobar, was admitted to 3 Med Surg Room 303-01 @ 1555. Patient/family oriented to hospital policies and general routines including ID bracelet, bed and alarms, visiting hours, pain management, procedures, bathroom and other care routines, personal items, smoking policy, room service/diet, and visiting hours. Information on how to activate the Rapid Response Team has been discussed. Patient/Family are encouraged to report perceived risks to care and to ask questions if they do not understand what they are told or what they should do.
[2024-02-26 16:02] LABS: MRSA (PCR) NOT DETECTED (NOT DETECTE)
[2024-02-26] MEDS: ACETAMINOPHEN 500 MG TABLET 1000 MG PO ×2 (16:22→22:18)
[2024-02-26] MEDS: HYDROXYCHLOROQUINE SULFATE 200 MG TABLET PO (18:45)
[2024-02-26] MEDS: LORazepam (*CRX) 0.5 MG TABLET PO (18:45)
[2024-02-26] MEDS: LINEZOLID 600 MG TABLET PO (21:17)
[2024-02-26] MEDS: guaiFENesin 12 HR 600 MG TABCR PO (21:17)
[2024-02-27] VITALS (9 sets, daily range): BP systolic 126–139; BP diastolic 83–86; PULSE 100–111; RESP 16–18; TEMP 37.5–38.1; O2SAT 93–98
[2024-02-27 06:17] LABS: Estimated CRCL calculation 64 ml/min; Estimated Glomerular Filt Rate 59
[2024-02-27] MEDS: ACETAMINOPHEN 500 MG TABLET 1000 MG PO ×3 (06:22→18:55)
[2024-02-27] MEDS: PANTOPRAZOLE 40 MG TABLET PO ×2 (08:48→16:34)
[2024-02-27] MEDS: MAGNESIUM OXIDE 400 MG TABLET PO (08:48)
[2024-02-27] MEDS: guaiFENesin 12 HR 600 MG TABCR PO ×2 (08:48→20:44)
[2024-02-27] MEDS: HYDROXYCHLOROQUINE SULFATE 200 MG TABLET PO ×2 (08:48→16:34)
[2024-02-27] MEDS: LINEZOLID 600 MG TABLET PO ×2 (08:48→20:44)
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
[2024-02-27] MEDS: CEFEPIME 2 GM/NS 50 ML 2 GM/50 ML BAG IVPB ×2 (15:30→20:44)
[2024-02-27] MEDS: SALINE LOCK FLUSH 10 ML IV PUSH (21:28)
[2024-02-27] MEDS: SODIUM CHLORIDE 0.9% IV 1,000 ML 500 ML IV CONT (21:28)
[2024-02-28] MEDS: ACETAMINOPHEN 500 MG TABLET 1000 MG PO (04:10)
[2024-02-28] MEDS: SALINE LOCK FLUSH 10 ML IV PUSH (04:16)
[2024-02-28 04:43] LABS: Hematocrit 37.2 % (42.0-52.0); Immature Platelet Fraction Pct 3.6 % (0.9-11.2); Mean Corpuscular HGB Conc 34.9 g/dl (32-36); Mean Corpuscular Hemoglobin 31.9 pg (26-34); Mean Corpuscular Volume 91.2 fl (80-100); Mean Platelet Volume 9.8 fl (7.4-10.4); Platelet Count Result 86 k/mm3 (150-375); Red Blood Count 4.08 M/mm3 (4.6-6.20); Red Cell Distribution Width 12.2 % (11.5-14.5); White Blood Count 5.1 K/mm3 (4.5-10.0)
[2024-02-28 05:00] LABS: Anion Gap 6 mmol/L (4-12); Blood Urea Nitrogen 15 mg/dL (9-20); Calcium 8.5 mg/dL (8.4-10.2); Carbon Dioxide 24 mmol/L (22-30); Chloride 104 mmol/L (98-107); Estimated CRCL calculation 64 ml/min; Estimated Glomerular Filt Rate 59; Glucose 143 mg/dL (65-110); Potassium 3.9 mmol/L (3.4-5.0); Sodium 134 mmol/L (137-145)
[2024-02-28 05:17] LABS: Band Neutrophils Percent 14 % (0-6); Eosinophils Absolute Manual 0.05 K/mm3 (0.02-0.50); Eosinophils Percent Manual 1 % (0-4); Lymphocytes Absolute Manual 1.07 K/mm3 (1.1-4.5); Lymphocytes Percent Manual 21 % (18-44); Monocytes Absolute Manual 0.51 K/mm3 (0.1-0.90); Monocytes Percent Manual 10 % (3-9); Neutrophils Absolute Manual 3.46 K/mm3 (1.3-6.7); Neutrophils Percent Manual 54 % (46-73); Platelet Estimate Decreased (Adequate); Total Cells Counted 100
[2024-02-28 05:18] LABS: Ovalocytes 1+; Schistocytes None Seen
[2024-02-28 06:00] VITALS: BP 143/95; PULSE 93; RESP 16; TEMP 36.9; O2SAT 96
[2024-02-28] MEDS: CEFEPIME 2 GM/NS 50 ML 2 GM/50 ML BAG IVPB (08:49)
[2024-02-28] MEDS: guaiFENesin 12 HR 600 MG TABCR PO (08:50)
[2024-02-28] MEDS: MAGNESIUM OXIDE 400 MG TABLET PO (08:50)
[2024-02-28] MEDS: PANTOPRAZOLE 40 MG TABLET PO ×2 (08:50→17:23)
[2024-02-28] MEDS: LINEZOLID 600 MG TABLET PO (08:50)
[2024-02-28] MEDS: HYDROXYCHLOROQUINE SULFATE 200 MG TABLET PO ×2 (08:50→17:23)
[2024-02-28 13:57] VITALS: BP 131/89; PULSE 92; RESP 16; TEMP 36.2; O2SAT 99
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
[2024-02-28 17:23] VITALS: TEMP 36.7
== END 2024-02-28 17:32 | disposition home or self-care (01) | DRG 871 ==
LOC: ANHED 13:14 → ANH3MEDSUR 15:51
PROVIDERS: Student in an Organized Health Care Education/Training Program; Admitting Provider General Practice; Emergency Provider Student in an Organized Health Care Education/Training Program; PCP Family Medicine; Visit Provider General Practice
DX: A41.9 Sepsis, unspecified organism (principal); J18.9 Pneumonia, unspecified organism; Z94.81 Bone marrow transplant status; Z94.84 Stem cells transplant status; N17.9 Acute kidney failure, unspecified; C94.81 Other specified leukemias, in remission; K21.9 Gastro-esophageal reflux disease without esophagitis; M54.2 Cervicalgia; G89.29 Other chronic pain; F41.9 Anxiety disorder, unspecified; Z20.822 Contact with and (suspected) exposure to COVID-19
CPT/HCPCS: 36415; 36569; 71046; 71260; 74177; 80048; 80053; 81001; 82565; 83605; 85025; 85055; 85610; 85652; 85730; 86140; 87040; 87070; 87205; 87637; 87641; 96361; 96365; 96366; 96367; 96368; 96375; 96376; 99285; A9270; C1751; G0378; J0456; J0692; J1170; J2060; J2405; J3370; J7030; J7120; Q9967

== ENCOUNTER 2024-09-28 02:09 | Inpatient (IN) | payer OTHER, SELFPAY ==
--- NOTE | ~2024-09-28 | CT_ITS ---
CT of the Abdomen and Pelvis: Indication: Abdominal pain Technique: 2.5 mm axial scans were obtained through the abdomen and pelvis following intravenous adm inistration of 100 cc of Omnipaque 350. Dose reduction technique was used on this scan by utilizing a utomated exposure control and iterative reconstruction technique. The dose-length product (DLP) was 4 62.08 mGy-cm. COMPARISON: 02/26/2024 Findings: Scans through the lung bases are unremarkable. The liver, spleen, pancreas, gallbladder, adrenals and kidneys are within normal limits. No evidence of aortic aneurysm. No lymphadenopathy. There is evidence of prior right hemicolectomy with enterocolonic anastomosis present. There are mult iple dilated distal small bowel loops, extending to the level of the anastomosis, suspicious for smal l bowel obstruction with transition point apparently at the enterocolonic anastomosis itself. Images through the pelvis were performed. Urinary bladder unremarkable. No pelvic mass seen. No ascit es. Impression: Findings consistent with small bowel obstruction, transition point likely at the enterocolonic anasto mosis. Evidence of prior right hemicolectomy. Reviewed, dictated and finalized at location M. ALT SMOOTHER Impression: Findings consistent with small bowel obstruction, transition point likely at th e enterocolonic anastomosis. Evidence of prior right hemicolectomy.
--- NOTE | ~2024-09-28 | XR_ITS ---
EXAMINATION: XR sm bowel follow through WS DATE: 09/28/2024 12:57 INDICATION: Small bowel obstruction. TECHNIQUE: Oral contrast was administered, and a time course of radiographs of the abdomen was obtain ed. Fluoroscopy of the small bowel was not performed. Fluoroscopy exposure time was 0 minutes. The to eulogio number of images was 9. COMPARISON: CT abdomen and pelvis 09/28/2024 FINDINGS: There are dilated loops of small bowel. There is a bowel staple line in right abdomen. The nasogastri c tube tip is in the stomach. Gastroesophageal reflux is noted. There is contrast in the colon at 2 h ours. There are changes of disc replacement in lumbar spine. IMPRESSION: 1. Dilated small bowel with normal transit time to the colon, consistent with adynamic ileus versus p artial small bowel obstruction. Reviewed, dictated and finalized at location A. POLISHER IMPRESSION: 1. Dilated small bowel with normal transit time to the colon, consistent with a dynamic ileus versus partial small bowel obstruction.
--- NOTE | ~2024-09-28 | XR_ITS ---
Upright portable view of the abdomen Clinical history: NG tube placed Findings: NG tube side-port is just at the GE junction region. Distended small bowel loops are noted, suggestive of small bowel obstruction. No free air. No abnormal mass lesion or calcification is seen . Osseous structures are intact. Impression: NG tube side-port at GE junction region. Further advancement into the stomach advised. Probable small bowel obstruction. Reviewed, dictated and finalized at location . [employer] Impression: NG tube side-port at GE junction region. Further advancement into the stomach a dvised. Probable small bowel obstruction.
[2024-09-28 02:10] VITALS: BP 156/106; PULSE 104; RESP 15; TEMP 36.7; O2SAT 100
[2024-09-28] MEDS: SODIUM CHLORIDE 0.9% IV 1,000 ML 999 ML IV CONT (02:22)
[2024-09-28] MEDS: ONDANSETRON INJ 4 MG/2 ML VIAL IV PUSH ×5 (02:23→17:19)
[2024-09-28] MEDS: HYDROmorphone HCL INJ (*CRX) 1 MG/ML SYR IV PUSH ×5 (02:23→21:24)
[2024-09-28 02:31] LABS: Basophils Percent Auto 0.4 % (0.2-1.2); Eosinophils Percent Auto 0.4 % (0-4.4); Hematocrit 44.1 % (42.0-52.0); Hemoglobin 15.9 g/dL (14.0-18.0); Immature Granulocyte Absolute 0.03 K/mm3 (0.00-0.031); Immature Granulocyte Percent A 0.3 % (0-0.5); Lymphocytes Absolute Auto 1.17 K/mm3 (0.9-3.2); Lymphocytes Percent Auto 12.2 % (18.3-44.2); Mean Corpuscular HGB Conc 36.1 g/dl (32-36); Mean Corpuscular Hemoglobin 32.2 pg (26-34); Mean Corpuscular Volume 89.3 fl (80-100); Mean Platelet Volume 9.1 fl (7.4-10.4); Monocytes Absolute Auto 0.6 K/mm3 (0.1-0.6); Monocytes Percent Auto 6.4 % (2.6-8.5); Neutrophils Absolute Auto 7.7 K/mm3 (1.3-6.7); Neutrophils Percent Auto 80.3 % (45.5-73.1); Platelet Count Result 136 k/mm3 (150-375); Red Blood Count 4.94 M/mm3 (4.6-6.20); Red Cell Distribution Width 12.5 % (11.5-14.5); White Blood Count 9.6 K/mm3 (4.5-10.0)
[2024-09-28 02:41] LABS: Alanine Aminotransferase 39 U/L (6-50); Albumin Level 4.9 g/dL (3.5-5.1); Alkaline Phosphatase 67 U/L (38-126); Anion Gap 13 mmol/L (4-12); Aspartate Amino Transferase 42 U/L (17-59); Bilirubin,Total 1.1 mg/dL (0.2-1.3); Blood Urea Nitrogen 23 mg/dL (9-20); Calcium 9.9 mg/dL (8.4-10.2); Carbon Dioxide 24 mmol/L (22-30); Chloride 97 mmol/L (98-107); Estimated CRCL calculation 70 ml/min; Estimated Glomerular Filt Rate > 60; Glucose 212 mg/dL (65-110); Lipase 108 U/L (23-300); Magnesium 1.6 mg/dL (1.6-2.3); Potassium 4.2 mmol/L (3.4-5.0); Sodium 134 mmol/L (137-145)
[2024-09-28 02:46] LABS: INR 1.2; Prothrombin Time 15.2 Seconds (11.1-14.7)
[2024-09-28 02:47] LABS: Partial Thromboplastin Time 27.1 Seconds (22.3-36.8)
--- NOTE | 2024-09-28 03:17 | ED.GENADULT ---
HPI - General Adult General Chief complaint: Abdominal Pain Stated complaint: SEVERE ABDOMINAL PAIN W/Hx OF BOWEL PERFORATION Time Seen by Provider: 09/28/24 02:09 History of Present Illness HPI narrative: patient 49-year-old gentleman who presents emergency department with chief complaint of abdominal pain. The patient reports that he has history of leukemia had a bone marrow transplant is had bowel obstruction and bowel perforation as well as colostomy with takedown as was performed at [facility] the patient reports that today started having severe abdominal pain has vomit that had a little bit of dark color and maybe a little bit of blood in it. The patient reports that he has not had a bowel movement today and reports he normally has loose stools. The patient states given his history was concerned that he may have either a bowel obstruction or have a bowel perforation. the patient reports that his surgery was in 2017 Related Data Home Medications Medication Instructions Recorded Confirmed lorazepam 1 mg tablet 0.5 mg PO TID PRN Muscle Spasm 01/21/20 02/26/24 omeprazole 40 mg capsule,delayed 40 mg PO DAILY 01/21/20 02/26/24 release ergocalciferol (vitamin D2) 1,250 1,250 mcg PO DAILY 05/22/21 02/26/24 mcg (50,000 unit) capsule magnesium oxide 400 mg (241.3 mg 4,000 mg PO DAILY 05/22/21 02/26/24 magnesium) tablet methocarbamol 500 mg tablet 500 mg PO TID PRN Muscle Spasm 05/22/21 02/26/24 eltrombopag olamine 75 mg tablet 75 mg PO HS 02/26/24 02/26/24 (Promacta) hydroxychloroquine 200 mg tablet 200 mg PO BID 02/26/24 02/26/24 Allergies Allergy/AdvReac Type Severity Reaction Status Date / Time CATS Allergy Mild Unknown Uncoded 09/28/24 02:17 SHELLFISH Allergy Mild Unknown Uncoded 09/28/24 02:17 Review of Systems Review of Systems: A 10 system review of systems was completed on the patient and is negative except for what is stated in the HPI. Nursing and ancillary documentation was reviewed. [facility] Past Medical History Medical History Anxiety Chronic neck pain GERD (gastroesophageal reflux disease) History of chemotherapy Leukemia Migraine Osteomyelitis secondary to AOM on 2020 Rupture of bowel colon, 2016 Surgical History Surgical History History of colon resection History of colostomy reversal History of orthopedic surgery Social History Social History Smoking status: Never smoker Alcohol intake: never Substance use: never Do You Feel Safe in your Home?: Yes Lack of Transportation: No Lack of Food: Never True Current Housing: I Have Housing Concerned About Future Housing: No Difficulty Paying Gas/Electric Bills: No Difficulty Paying for Meds: No Currently Unemployed: No Education: Decline to Answer Difficulty w/ Childcare or Family Care: No Gender identity (if verbalized by the patient): Male Spiritual care concerns: No Exam Narrative: GENERAL: Well-appearing, well-nourished, and in no acute distress. HEAD: Normocephalic, atraumatic. EYES: PERRLA and EOMI. ENT: Nares clear, no rhinorrhea or epistaxis. Mucous membranes moist. NECK: Supple. CHEST: Clear to auscultation. No respiratory distress. HEART: Regular rate and rhythm. No murmur heard. Normal peripheral pulses. ABDOMEN: Soft, diffusely tender to palpation, nondistended, normal active bowel sounds. EXTREMITIES: Normal range of motion. No edema. SKIN: Warm, dry, no rash. NEURO: No focal deficits. Alert and oriented x3. PSYCH: Normal mood and affect. Course Vital Signs Vital signs: Vital Signs Temperature 36.7 C 09/28/24 02:10 Pulse Rate 104 H 09/28/24 02:10 Respiratory Rate 15 09/28/24 02:10 Blood Pressure 156/106 H 09/28/24 02:10 Pulse Oximetry 100 09/28/24 02:10 Oxygen Delivery Room Air 09/28/24 02:10 Temperature 36.7 C 09/28/24 02:10 Pulse Rate 97 09/28/24 06:42 Respiratory Rate 15 09/28/24 06:42 Blood Pressure 155/96 H 09/28/24 06:42 Pulse Oximetry 100 09/28/24 06:42 Oxygen Delivery Room Air 09/28/24 02:10 Medical Decision Making MDM Narrative Medical decision making narrative: differential diagnosis includes intra-abdominal infection, bowel perforation, small-bowel obstruction laboratory studies were obtained on the patient showed white count of 9.6 electrolytes were within normal limits CT scan showed Findings consistent with small bowel obstruction, transition point likely at the enterocolonic anastomosis. Evidence of prior right hemicolectomy the case was discussed with Dr. Coto who will consult on the patient Vital Signs Vital Signs: Vital Signs Temperature 36.7 C 09/28/24 02:10 Pulse Rate 104 H 09/28/24 02:10 Respiratory Rate 15 09/28/24 02:10 Blood Pressure 156/106 H 09/28/24 02:10 Pulse Oximetry 100 09/28/24 02:10 Oxygen Delivery Room Air 09/28/24 02:10 Temperature 36.7 C 09/28/24 02:10 Pulse Rate 97 09/28/24 06:42 Respiratory Rate 15 09/28/24 06:42 Blood Pressure 155/96 H 09/28/24 06:42 Pulse Oximetry 100 09/28/24 06:42 Oxygen Delivery Room Air 09/28/24 02:10 Lab Data 09/28/24 02:24 09/28/24 02:24 Labs: Lab Results 09/28/24 09/28/24 Range/Units 02:24 04:23 WBC 9.6 (4.5-10.0) K/mm3 RBC 4.94 (4.6-6.20) M/mm3 Hgb 15.9 (14.0-18.0) g/dL Hct 44.1 (42.0-52.0) % MCV 89.3 (80-100) fl MCH 32.2 (26-34) pg MCHC 36.1 H (32-36) g/dl RDW 12.5 (11.5-14.5) % Plt Count 136 L D (150-375) k/mm3 MPV 9.1 (7.4-10.4) fl Immature Gran % (Auto) 0.3 (0-0.5) % Neut % (Auto) 80.3 H (45.5-73.1) % Lymph % (Auto) 12.2 L (18.3-44.2) % [place] % (Auto) 6.4 (2.6-8.5) % Eos % (Auto) 0.4 (0-4.4) % Baso % (Auto) 0.4 (0.2-1.2) % Lymph # (Auto) 1.17 (0.9-3.2) K/mm3 [place] # (Auto) 0.6 (0.1-0.6) K/mm3 Eos # (Auto) 0.0 (0-0.3) K/mm3 Baso # (Auto) 0.0 (0.0-0.1) K/mm3 Abs Immat Gran (auto) 0.03 (0.00-0.031) K/mm3 Absolute Neuts (auto) 7.7 H (1.3-6.7) K/mm3 Absolute Nucleated RBC 0.000 (0.0-0.012) K/mm3 Nucleated RBC % 0.0 (0.0-0.2) % PT 15.2 H (11.1-14.7) Seconds INR 1.2 APTT 27.1 (22.3-36.8) Seconds Sodium 134 L (137-145) mmol/L Potassium 4.2 (3.4-5.0) mmol/L Chloride 97 L (98-107) mmol/L Carbon Dioxide 24 (22-30) mmol/L Anion Gap 13 H (4-12) mmol/L BUN 23 H (9-20) mg/dL Creatinine 1.20 (0.7-1.3) mg/dL Estim Creat Clear Calc 70 ml/min Estimated GFR > 60 (59 - ) Glucose 212 H (65-110) mg/dL Lactic Acid 2.0 (0.7-2.0) mmol/L Calcium 9.9 (8.4-10.2) mg/dL Magnesium 1.6 (1.6-2.3) mg/dL Total Bilirubin 1.1 (0.2-1.3) mg/dL AST 42 (17-59) U/L ALT 39 (6-50) U/L Alkaline Phosphatase 67 (38-126) U/L Total Protein 8.0 (6.3-8.2) g/dL Albumin 4.9 (3.5-5.1) g/dL Lipase 108 (23-300) U/L Urine Color Yellow (Yellow) Urine Appearance Clear (Clear) Urine pH 7.0 (5.0-9.0) Ur Specific [place] 1.022 (1.001-1.035) Urine Protein Trace (Negative) mg/dL Urine Glucose (UA) Negative (Negative) mg/dL Urine Ketones 1+ H (Negative) mg/dL Ur Blood (Man) Negative (Negative) Urine Nitrate Negative (Negative) Urine Bilirubin Negative (Negative) Urine Urobilinogen 0.2 (<2.0) mg/dL Leukocyte Esterase Rfl Negative (Negative) ESTELLE/UL Urine RBC 0-2 (0-2) /hpf Urine WBC 0-5 (0-3) /hpf Ur Squamous Epith Cells None seen (Few) /hpf Urine Bacteria None seen /hpf Urine Casts 0-2 Discharge Plan Discharge Clinical Impression: Small bowel obstruction Patient Disposition: Still a Patient Condition: Stable Instructions: Antibiotic Form Prescriptions: No Action methocarbamol 500 mg tablet 500 mg PO TID PRN (Reason: Muscle Spasm) magnesium oxide 400 mg (241.3 mg magnesium) tablet 4,000 mg PO DAILY ergocalciferol (vitamin D2) 1,250 mcg (50,000 unit) capsule 1,250 mcg PO DAILY hydroxychloroquine 200 mg tablet 200 mg PO BID Promacta 75 mg tablet 75 mg PO HS linezolid 600 mg Tablet 600 mg PO Q12HR 4 Days Qty: 8 0RF amoxicillin-pot clavulanate 875-125 mg tablet 1 tablet PO Q12H 4 Days Qty: 8 0RF omeprazole 40 mg capsule,delayed release(DR/EC) 40 mg PO DAILY lorazepam 1 mg tablet 0.5 mg PO TID PRN (Reason: Muscle Spasm) Follow-up/Referrals: Ana,Cuate Bernabe MD [Primary Care Provider] - Time of Disposition: 06:46
[2024-09-28] MEDS: MAGNESIUM SULF 1 GM/D5W 100 ML 1 GM/100 ML BAG IVPB (04:05)
[2024-09-28 04:33] LABS: Add Urine Microscopic? YES; Appearance Urine Clear (Clear); Bacteria Urine None Seen /hpf; Bilirubin Urine Negative (Negative); Blood Urine Negative (Negative); Color Urine Yellow (Yellow); Glucose Urine UA Negative (Negative); Ketones Urine 1+ mg/dL (Negative); Leukocyte Esterase Ur Negative LEU/UL (Negative); Nitrate Urine Negative (Negative); Non Pathogenic Casts 0-2; Protein Urine Trace mg/dL (Negative); RBC Urine 0-2 /hpf (0-2); Specific Grav Ur 1.022 (1.001-1.035); Squamous Epithelial Cell Urine None Seen /hpf (Few); Urobilinogen Urine 0.2 mg/dL (<2.0); WBC Urine 0-5 /hpf (0-3)
[2024-09-28 05:30] VITALS: BP 143/102; PULSE 92; RESP 15; O2SAT 99
[2024-09-28 06:42] VITALS: BP 155/96; PULSE 97; RESP 15; O2SAT 100
[2024-09-28] MEDS: LORazepam INJ (*CRX) 2 MG/ML VIAL 0.5 MG IV PUSH ×2 (07:09→10:27)
[2024-09-28] MEDS: SODIUM CHLORIDE 0.9% IV 1,000 ML 125 ML IV CONT (07:09)
[2024-09-28 07:30] VITALS: BP 134/98; PULSE 96; RESP 18; O2SAT 96
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
--- NOTE | 2024-09-28 08:05 | PC.NURSE ---
FRONTLOAD DRIVER AT BEDSIDE. NG LOCATED IN [facility] AT 55. NG ADVANCED TO 60 AT THIS TIME PER X-RAY RESULT.
[2024-09-28 08:23] VITALS: BMI 24.7
[2024-09-28] MEDS: LACTATED RINGERS 1,000 ML 125 ML IV CONT ×2 (09:26→20:38)
[2024-09-28] MEDS: PANTOPRAZOLE SODIUM IV 40 MG VIAL IV PUSH (09:26)
--- NOTE | 2024-09-28 09:53 | ADMGEN ---
This patient, Kofi Escobar, was admitted to 3 Med Surg Room 305-01. Patient/family oriented to hospital policies and general routines including ID bracelet, bed and alarms, visiting hours, pain management, procedures, bathroom and other care routines, personal items, smoking policy, room service/diet, and visiting hours. Information on how to activate the Rapid Response Team has been discussed. Patient/Family are encouraged to report perceived risks to care and to ask questions if they do not understand what they are told or what they should do.
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
--- NOTE | 2024-09-28 10:29 | PC.NURSE ---
Patient down to xray via stretcher for small bowel series.
[2024-09-28 14:00] VITALS: BP 105/46; PULSE 92; RESP 18; TEMP 36.7; O2SAT 100
--- NOTE | 2024-09-28 17:27 | PC.NURSE ---
Patient had stem cell transplant in [address] Anthony. Attempted to give contact information to Dr. Montoya to facilitate communication between hospitalist staff and patient's specialist team. Provider did not accept contact info. Contact info for Dr. Anthony (his coordinator Adrienne) can be reached at [phone].
[2024-09-28 20:55] VITALS: BP 136/95; PULSE 100; RESP 18; TEMP 36.9; O2SAT 99
[2024-09-29 05:40] VITALS: BP 133/76; PULSE 99; RESP 16; TEMP 36.6; O2SAT 96
[2024-09-29 06:34] LABS: Basophils Percent Auto 0.2 % (0.2-1.2); Eosinophils Percent Auto 0.3 % (0-4.4); Hematocrit 44.1 % (42.0-52.0); Hemoglobin 15.2 g/dL (14.0-18.0); Immature Granulocyte Absolute 0.03 K/mm3 (0.00-0.031); Immature Granulocyte Percent A 0.3 % (0-0.5); Immature Platelet Fraction Pct 2.4 % (0.9-11.2); Lymphocytes Absolute Auto 1.23 K/mm3 (0.9-3.2); Lymphocytes Percent Auto 13.5 % (18.3-44.2); Mean Corpuscular HGB Conc 34.5 g/dl (32-36); Mean Corpuscular Hemoglobin 32.1 pg (26-34); Mean Corpuscular Volume 93.2 fl (80-100); Mean Platelet Volume 9.7 fl (7.4-10.4); Monocytes Absolute Auto 0.7 K/mm3 (0.1-0.6); Monocytes Percent Auto 8.1 % (2.6-8.5); Neutrophils Absolute Auto 7.1 K/mm3 (1.3-6.7); Neutrophils Percent Auto 77.6 % (45.5-73.1); Platelet Count Result 116 k/mm3 (150-375); Red Blood Count 4.73 M/mm3 (4.6-6.20); Red Cell Distribution Width 12.6 % (11.5-14.5); White Blood Count 9.1 K/mm3 (4.5-10.0)
[2024-09-29 06:42] LABS: Anion Gap 6 mmol/L (4-12); Blood Urea Nitrogen 19 mg/dL (9-20); Calcium 8.7 mg/dL (8.4-10.2); Carbon Dioxide 28 mmol/L (22-30); Chloride 99 mmol/L (98-107); Estimated CRCL calculation 76 ml/min; Estimated Glomerular Filt Rate > 60; Glucose 120 mg/dL (65-110); Magnesium 1.9 mg/dL (1.6-2.3); Potassium 4.3 mmol/L (3.4-5.0); Sodium 133 mmol/L (137-145)
[2024-09-29 08:43] VITALS: O2SAT 98
--- NOTE | 2024-09-29 10:45 | P.PN_ITS ---
Progress Note: A&P Assessment and Plan (1) Small bowel obstruction: Code(s): K56.609 - Unspecified intestinal obstruction, unspecified as to partial versus complete obstruction Status: Acute Assessment and Plan: Partial small-bowel obstruction seems to be resolving. Water-soluble small bowel series showed contrast reaching the colon in 2hours with some mildly dilated small bowel loops. Likely due to partial obstruction versus adynamic ileus. Nasogastric tube was removed he tolerated clear liquids. We will go ahead advance him to full liquids today. I did speak with him about the fact that the initial CT scan showed that there was possible partial obstruction at the ileocolic stapled anastomosis region. Patient has never had a colonoscopy. I recommended to him that he should probably get a colonoscopy performed since he is now 49 years old and this CT finding that suggested he could have a stricture at the anastomosis. He is going to follow up with his physicians at 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 He actively follows with them on a regular basis. I instructed him to discuss referral to drafter marine at [facility] for a colonoscopy in the future. At this point small- bowel obstruction seems to be resolving. Later today if he is doing well a full liquids then likely advanced to solid food. Probably home hopefully in the next 24hours or so. Subjective Date/time seen: 09/29/24 10:45 Interval history: Patient is doing better today. He has had additional bowel movements since yesterday after his small-bowel follow-through study with water-soluble contrast. He tolerated clear liquids yesterday after his nasogastric tube was removed. Has very minimal pain the lower abdomen today. No nausea or vomiting. White blood count is normal. Electrolytes normal as well. Exam GI: Other: Abdomen is soft and nondistended. Minimal tenderness in the lower abdomen. Guarding or peritoneal signs. Objective Data Vital Signs Vital Signs: Vital Signs - 24 hr 09/28/24 14:00 09/28/24 20:55 09/29/24 05:40 Temperature 36.7 C 36.9 C 36.6 C Pulse Rate 92 100 99 Respiratory Rate 18 18 16 Blood Pressure 105/46 L 136/95 H 133/76 Pulse Oximetry 100 99 96 Oxygen Delivery Fraction of Inspired Oxygen 09/29/24 08:43 Temperature Pulse Rate Respiratory Rate Blood Pressure Pulse Oximetry 98 Oxygen Delivery Room Air Fraction of Inspired Oxygen 21 Intake/Output Intake/Output: Intake & Output 09/26/24 09/27/24 09/28/24 09/29/24 23:59 23:59 23:59 23:59 Intake Total 2820 100 Balance 2820 100 Meds/Results Medications: Active Medications Generic Name Dose Route Start Last Admin Trade Name Freq PRN Reason Stop Dose Admin Hydromorphone HCl 1 mg 09/28/24 12:13 09/28/24 21:24 Hydromorphone Hcl Inj (*Crx) 1 Mg/Ml Syr IV PUSH 1 mg Q3H PRN Administration Pain Rated 7-10 Lactated Ringer's 1,000 mls @ 125 mls/hr 09/28/24 08:30 09/28/24 20:38 Lr - Lactated Ringers Iv IV CONT 125 mls/hr .Q8H ROQUE Administration Lorazepam 0.5 mg 09/28/24 10:08 09/28/24 10:27 Lorazepam Inj (*Crx) 2 Mg/Ml Vial IV PUSH 0.5 mg Q6H PRN Administration Muscle Spasm Ondansetron HCl 4 mg 09/28/24 06:45 09/28/24 17:19 Ondansetron Inj 4 Mg/2 Ml Vial IV PUSH 4 mg Q4H PRN Administration Nausea Pantoprazole Sodium 40 mg 09/29/24 09:00 09/29/24 08:40 Pantoprazole 40 Mg Tablet PO Not Given QAM ROQUE Phenol 1 spray 09/28/24 12:03 Phenol/Sod Pheno [place] (*Bkc) MUCOUS MEM PRN PRN Sore Throat Radiology Results: ITS Impressions Abdomen/Pelvis CT 09/28/24 06:05 Impression: Findings consistent with small bowel obstruction, transition point likely at the enterocolonic anastomosis. Evidence of prior right hemicolectomy. Abdomen X-Ray 09/28/24 07:34 Impression: NG tube side-port at GE junction region. Further advancement into the stomach advised. Probable small bowel obstruction. Small Bowel X-Ray 09/28/24 13:00 IMPRESSION: 1. Dilated small bowel with normal transit time to the colon, consistent with adynamic ileus versus partial small bowel obstruction. Labs Labs: Laboratory Results - last 24 hr 09/29/24 06:07 WBC 9.1 RBC 4.73 Hgb 15.2 Hct 44.1 MCV 93.2 MCH 32.1 MCHC 34.5 RDW 12.6 Plt Count 116 L MPV 9.7 Immature Gran % (Auto) 0.3 Neut % (Auto) 77.6 H Lymph % (Auto) 13.5 L [place] % (Auto) 8.1 Eos % (Auto) 0.3 Baso % (Auto) 0.2 Lymph # (Auto) 1.23 [place] # (Auto) 0.7 H Eos # (Auto) 0.0 Baso # (Auto) 0.0 Abs Immat Gran (auto) 0.03 Absolute Neuts (auto) 7.1 H Absolute Nucleated RBC 0.000 Nucleated RBC % 0.0 % Immature Plt Fraction 2.4 Sodium 133 L Potassium 4.3 Chloride 99 Carbon Dioxide 28 Anion Gap 6 BUN 19 Creatinine 1.10 Estim Creat Clear Calc 76 Estimated GFR > 60 Glucose 120 H Calcium 8.7 Phosphorus 3.0 Magnesium 1.9
--- NOTE | 2024-09-29 11:44 | PM.IMPN ---
Progress Note: A&P Assessment and Plan (1) Small bowel obstruction: Code(s): K56.609 - Unspecified intestinal obstruction, unspecified as to partial versus complete obstruction Status: Acute (2) Dehydration: Code(s): E86.0 - Dehydration Status: Acute (3) Hyponatremia: Code(s): E87.1 - Hypo-osmolality and hyponatremia Status: Acute (4) Leukemia: Code(s): C95.90 - Leukemia, unspecified not having achieved remission Status: Acute (5) Thrombocytopenia: Code(s): D69.6 - Thrombocytopenia, unspecified Status: Acute Plan # Small-bowel obstruction Patient started having acute abdomen pain yesterday associated with nausea vomiting CT shows small bowel obstruction. Patient has a history of bowel obstruction and rupture status post colon resection in the past NG tube is placed on admission, now resolved NG removed and started on clear liquid. To Advance slowly CT evidence of stricture at the anastomosis. Follow-up as an outpatient basis for colonoscopy # Hyponatremia, dehydration Upon arrival in the ED, patient was found have hyponatremia, elevated BUN creatinine ratio suggesting dehydration Likely secondary to small-bowel obstruction Treated with IV fluids # Thrombocytopenia Hold Promacta during n. p.o. 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 Chen Dr. Abrhaam was okay with him being treated here per Kimi Subjective Date/time seen: 09/29/24 11:44 Interval history: No overnight events. Patient doing well. Abdominal pain has resolved. He also had bowel movement Review of Systems Review of Systems: All systems reviewed & are unremarkable except as noted in HPI and below Exam Narrative: GENERAL: Pleasant, in no acute distress. Well-nourished. - EYES: EOMI. Anicteric. - HENT: Moist mucous membranes. - LUNGS: Clear to auscultation bilaterally, no wheezing, rhonchi, or rales. - CARDIOVASCULAR: Regular rate and rhythm. No murmur. No JVD. - ABDOMEN: Soft, nontender and non-distended. No palpable masses. - EXTREMITIES: No edema. Peripheral pulses 2+. Non-tender. - NEUROLOGIC: No focal neurological deficits. CN II-XII grossly intact. - PSYCHIATRIC: Awake, Alert and oriented x 3. Appropriate mood and affect. - SKIN: No rashes or lesions. Warm. Objective Data Vital Signs Vital Signs: Vital Signs - 24 hr 09/28/24 14:00 09/28/24 20:55 09/29/24 05:40 Temperature 98.1 F 98.4 F 98 F Pulse Rate 92 100 99 Respiratory Rate 18 18 16 Blood Pressure 105/46 L 136/95 H 133/76 Pulse Oximetry 100 99 96 Oxygen Delivery Fraction of Inspired Oxygen 09/29/24 08:43 Temperature Pulse Rate Respiratory Rate Blood Pressure Pulse Oximetry 98 Oxygen Delivery Room Air Fraction of Inspired Oxygen 21 Intake/Output Intake/Output: Intake & Output 09/26/24 09/27/24 09/28/24 09/29/24 23:59 23:59 23:59 23:59 Intake Total 2820 100 Balance 2820 100 Meds/Results Medications: Active Medications Generic Name Dose Route Start Last Admin Trade Name Freq PRN Reason Stop Dose Admin Hydromorphone HCl 1 mg 09/28/24 12:13 09/28/24 21:24 Hydromorphone Hcl Inj (*Crx) 1 Mg/Ml Syr IV PUSH 1 mg Q3H PRN Administration Pain Rated 7-10 Lactated Ringer's 1,000 mls @ 75 mls/hr 09/28/24 08:30 09/28/24 20:38 Lr - Lactated Ringers Iv IV CONT 125 mls/hr .[id number] ROQUE Administration Lorazepam 0.5 mg 09/28/24 10:08 09/28/24 10:27 Lorazepam Inj (*Crx) 2 Mg/Ml Vial IV PUSH 0.5 mg Q6H PRN Administration Muscle Spasm Ondansetron HCl 4 mg 09/28/24 06:45 09/28/24 17:19 Ondansetron Inj 4 Mg/2 Ml Vial IV PUSH 4 mg Q4H PRN Administration Nausea Pantoprazole Sodium 40 mg 09/29/24 09:00 09/29/24 08:40 Pantoprazole 40 Mg Tablet PO Not Given QAM ROQUE Phenol 1 spray 09/28/24 12:03 Phenol/Sod Pheno [place] Ochoa (*Bkc) MUCOUS MEM PRN PRN Sore Throat Radiology Results: ITS Impressions Abdomen/Pelvis CT 09/28/24 06:05 Impression: Findings consistent with small bowel obstruction, transition point likely at the enterocolonic anastomosis. Evidence of prior right hemicolectomy. Abdomen X-Ray 09/28/24 07:34 Impression: NG tube side-port at GE junction region. Further advancement into the stomach advised. Probable small bowel obstruction. Small Bowel X-Ray 09/28/24 13:00 IMPRESSION: 1. Dilated small bowel with normal transit time to the colon, consistent with adynamic ileus versus partial small bowel obstruction. Labs Labs: Laboratory Results - last 24 hr 09/29/24 06:07 WBC 9.1 RBC 4.73 Hgb 15.2 Hct 44.1 MCV 93.2 MCH 32.1 MCHC 34.5 RDW 12.6 Plt Count 116 L MPV 9.7 Immature Gran % (Auto) 0.3 Neut % (Auto) 77.6 H Lymph % (Auto) 13.5 L [place] % (Auto) 8.1 Eos % (Auto) 0.3 Baso % (Auto) 0.2 Lymph # (Auto) 1.23 [place] # (Auto) 0.7 H Eos # (Auto) 0.0 Baso # (Auto) 0.0 Abs Immat Gran (auto) 0.03 Absolute Neuts (auto) 7.1 H Absolute Nucleated RBC 0.000 Nucleated RBC % 0.0 % Immature Plt Fraction 2.4 Sodium 133 L Potassium 4.3 Chloride 99 Carbon Dioxide 28 Anion Gap 6 BUN 19 Creatinine 1.10 Estim Creat Clear Calc 76 Estimated GFR > 60 Glucose 120 H Calcium 8.7 Phosphorus 3.0 Magnesium 1.9
[2024-09-29 14:00] VITALS: BP 129/87; PULSE 97; RESP 20; TEMP 37.5; O2SAT 97
[2024-09-29] MEDS: LACTATED RINGERS 1,000 ML 125 ML IV CONT (15:58)
[2024-09-29] MEDS: HYDROXYCHLOROQUINE SULFATE 200 MG TABLET PO (17:07)
--- NOTE | 2024-09-29 19:23 | PHAR ---
PT'S HOME MED PROMACTA 75 MG TABS VERIFIED BY PHARMACY
[2024-09-29] MEDS: ELTROMBOPAG OLAMINE 75 MG 1 EACH PO (20:52)
[2024-09-29] MEDS: PHARMACIST COMMUNICATION ORDER 1 EACH XX (20:53)
[2024-09-29 21:22] VITALS: BP 136/91; PULSE 101; RESP 17; TEMP 36.7; O2SAT 100
[2024-09-29] MEDS: methocarbamoL 500 MG TABLET PO (23:56)
[2024-09-29] MEDS: LORazepam (*CRX) 0.5 MG TABLET PO (23:56)
[2024-09-30] MEDS: LACTATED RINGERS 1,000 ML 75 ML IV CONT (04:58)
[2024-09-30 05:53] VITALS: BP 112/66; PULSE 91; RESP 116; TEMP 36.8; O2SAT 96
[2024-09-30 06:48] LABS: Basophils Percent Auto 0.4 % (0.2-1.2); Eosinophils Absolute Auto 0.1 K/mm3 (0-0.3); Eosinophils Percent Auto 1.1 % (0-4.4); Hematocrit 40.9 % (42.0-52.0); Hemoglobin 14.1 g/dL (14.0-18.0); Immature Granulocyte Absolute 0.03 K/mm3 (0.00-0.031); Immature Granulocyte Percent A 0.4 % (0-0.5); Immature Platelet Fraction Pct 2.5 % (0.9-11.2); Lymphocytes Absolute Auto 1.16 K/mm3 (0.9-3.2); Lymphocytes Percent Auto 13.9 % (18.3-44.2); Mean Corpuscular HGB Conc 34.5 g/dl (32-36); Mean Corpuscular Hemoglobin 32.3 pg (26-34); Mean Corpuscular Volume 93.8 fl (80-100); Mean Platelet Volume 9.8 fl (7.4-10.4); Monocytes Absolute Auto 0.7 K/mm3 (0.1-0.6); Monocytes Percent Auto 8.6 % (2.6-8.5); Neutrophils Absolute Auto 6.3 K/mm3 (1.3-6.7); Neutrophils Percent Auto 75.6 % (45.5-73.1); Platelet Count Result 125 k/mm3 (150-375); Red Blood Count 4.36 M/mm3 (4.6-6.20); Red Cell Distribution Width 12.4 % (11.5-14.5); White Blood Count 8.4 K/mm3 (4.5-10.0)
[2024-09-30 07:13] LABS: Alanine Aminotransferase 24 U/L (6-50); Alkaline Phosphatase 55 U/L (38-126); Anion Gap 7 mmol/L (4-12); Aspartate Amino Transferase 26 U/L (17-59); Blood Urea Nitrogen 18 mg/dL (9-20); Calcium 9.1 mg/dL (8.4-10.2); Carbon Dioxide 28 mmol/L (22-30); Chloride 98 mmol/L (98-107); Estimated CRCL calculation 76 ml/min; Estimated Glomerular Filt Rate > 60; Glucose 113 mg/dL (65-110); Magnesium 1.9 mg/dL (1.6-2.3); Potassium 4.2 mmol/L (3.4-5.0); Sodium 133 mmol/L (137-145)
[2024-09-30] MEDS: HYDROXYCHLOROQUINE SULFATE 200 MG TABLET PO (08:51)
--- NOTE | 2024-09-30 10:29 | PM.PNGS ---
Progress Note: A&P Assessment and Plan (1) Small bowel obstruction: Code(s): K56.609 - Unspecified intestinal obstruction, unspecified as to partial versus complete obstruction Status: Acute Assessment and Plan: Appears to have resolved. Advance to usual regular diet. Okay to discharge from surgical standpoint. No follow-up with Dr. Coto is needed unless further problems develop. He is doing well. Subjective Subjective Date/Time Seen: 09/30/24 10:29 Patient reports: no new complaints, pain is less, tolerating a regular diet and afebrile Review of Systems Review of Systems: All systems reviewed & are unremarkable except as noted in HPI and below (HPI) Exam Const: General: comfortable, no acute distress, alert and awake Orientation/consciousness: patient oriented x3 GI: Inspection: non-distended, scar and no visible herniation GI Palp: Yes Soft to palpation, No Tenderness to palpation present (GI), No Guarding due to palpation present (GI) and No Rebound tenderness present Neuro: General: patient oriented x3 and no focal motor deficits Extrem: General: no calf tenderness and no edema Psych: Affect: normal affect Insight: Good insight present (Psych) Judgement: Good judgement present (Psych) Objective Data Vital Signs Vital Signs: Vital Signs - 24 hr 09/29/24 14:00 09/29/24 21:22 09/29/24 20:00 Temperature 37.5 C 36.7 C Pulse Rate 97 101 H Respiratory Rate 20 17 Blood Pressure 129/87 136/91 H Pulse Oximetry 97 100 Oxygen Delivery Room Air 09/30/24 05:53 Temperature 36.8 C Pulse Rate 91 Respiratory Rate 116 H Blood Pressure 112/66 Pulse Oximetry 96 Oxygen Delivery Intake/Output Intake/Output: Intake & Output 09/27/24 09/28/24 09/29/24 09/30/24 23:59 23:59 23:59 23:59 Intake Total 2820 3719.2 1320.8 Balance 2820 3719.2 1320.8 Meds/Results Medications: Active Medications Generic Name Dose Route Start Last Admin Trade Name Freq PRN Reason Stop Dose Admin Hydromorphone HCl 1 mg 09/28/24 12:13 09/28/24 21:24 Hydromorphone Hcl Inj (*Crx) 1 Mg/Ml Syr IV PUSH 1 mg Q3H PRN Administration Pain Rated 7-10 Hydroxychloroquine Sulfate 200 mg 09/29/24 17:00 09/30/24 08:51 Hydroxychloroquine Sulfate 200 Mg Tablet PO 200 mg BIDWM ROQUE Administration Lactated Ringer's 1,000 mls @ 75 mls/hr 09/28/24 08:30 09/30/24 05:14 Lr - Lactated Ringers Iv IV CONT Not Given .[id number] ROQUE Lorazepam 0.5 mg 09/29/24 15:56 09/29/24 23:56 Lorazepam (*Crx) 0.5 Mg Tablet PO 0.5 mg TID PRN Administration Anxiety Methocarbamol 500 mg 09/29/24 14:52 09/29/24 23:56 Methocarbamol 500 Mg Tablet PO 500 mg TID PRN Administration Muscle Spasm Non-Formulary ( 1 each 09/29/24 21:00 09/29/24 20:52 Eltrombopag Olamine PO 10/29/24 20:59 1 each 75 Mg Oral Tablet) HS ROQUE Administration Ondansetron HCl 4 mg 09/28/24 06:45 09/28/24 17:19 Ondansetron Inj 4 Mg/2 Ml Vial IV PUSH 4 mg Q4H PRN Administration Nausea Pantoprazole Sodium 40 mg 09/29/24 09:00 09/30/24 08:51 Pantoprazole 40 Mg Tablet PO Not Given QAM ROQUE Phenol 1 spray 09/28/24 12:03 Phenol/Sod Pheno [place] Ochoa (*Bkc) MUCOUS MEM PRN PRN Sore Throat Radiology Results: ITS Impressions Abdomen/Pelvis CT 09/28/24 06:05 Impression: Findings consistent with small bowel obstruction, transition point likely at the enterocolonic anastomosis. Evidence of prior right hemicolectomy. Abdomen X-Ray 09/28/24 07:34 Impression: NG tube side-port at GE junction region. Further advancement into the stomach advised. Probable small bowel obstruction. Small Bowel X-Ray 09/28/24 13:00 IMPRESSION: 1. Dilated small bowel with normal transit time to the colon, consistent with adynamic ileus versus partial small bowel obstruction. Labs Labs: Laboratory Results - last 24 hr 09/30/24 05:57 WBC 8.4 RBC 4.36 L Hgb 14.1 Hct 40.9 L MCV 93.8 MCH 32.3 MCHC 34.5 RDW 12.4 Plt Count 125 L MPV 9.8 Immature Gran % (Auto) 0.4 Neut % (Auto) 75.6 H Lymph % (Auto) 13.9 L [place] % (Auto) 8.6 H Eos % (Auto) 1.1 Baso % (Auto) 0.4 Lymph # (Auto) 1.16 [place] # (Auto) 0.7 H Eos # (Auto) 0.1 Baso # (Auto) 0.0 Abs Immat Gran (auto) 0.03 Absolute Neuts (auto) 6.3 Absolute Nucleated RBC 0.000 Nucleated RBC % 0.0 % Immature Plt Fraction 2.5 Sodium 133 L Potassium 4.2 Chloride 98 Carbon Dioxide 28 Anion Gap 7 BUN 18 Creatinine 1.10 Estim Creat Clear Calc 76 Estimated GFR > 60 Glucose 113 H Calcium 9.1 Magnesium 1.9 Total Bilirubin 1.0 AST 26 ALT 24 Alkaline Phosphatase 55 Total Protein 7.0 Albumin 4.0
--- NOTE | 2024-09-30 13:22 | P.DS_ITS ---
DS: Admitting Diagnosis Discharge Date 09/30/2024 Admitting Diagnosis Abdominal pain DS: Discharge Diagnosis Discharge Diagnosis (1) Small bowel obstruction: Code(s): K56.609 - Unspecified intestinal obstruction, unspecified as to partial versus complete obstruction Status: Acute (2) Dehydration: Code(s): E86.0 - Dehydration Status: Acute (3) Hyponatremia: Code(s): E87.1 - Hypo-osmolality and hyponatremia Status: Acute (4) Leukemia: Code(s): C95.90 - Leukemia, unspecified not having achieved remission Status: Acute (5) Thrombocytopenia: Code(s): D69.6 - Thrombocytopenia, unspecified Status: Acute DS: Summary Hospital Course Hospital Course: # Small-bowel obstruction Patient started having acute abdomen pain yesterday associated with nausea vomiting CT shows small bowel obstruction. Patient has a history of bowel obstruction and rupture status post colon resection in the past NG tube is placed on admission, now resolved NG removed and started on clear liquid. To Advance slowly and tolerating diet. CT evidence of stricture at the anastomosis. Follow-up as an outpatient basis for colonoscopy # Hyponatremia, dehydration Upon arrival in the ED, patient was found have hyponatremia, elevated BUN creatinine ratio suggesting dehydration Likely secondary to small-bowel obstruction Treated with IV fluids # Thrombocytopenia Hold Promacta during n. p.o. 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 was okay with him being treated here per Kimi Time Spent with Patient Time attestation: Total time spent providing and/or coordinating discharge services: 35 minutes Exam Narrative: GENERAL: Pleasant, in no acute distress. Well-nourished. - EYES: EOMI. Anicteric. - HENT: Moist mucous membranes. - LUNGS: Clear to auscultation bilateral ly, no wheezing, rhonchi, or rales. - CARDIOVASCULAR: Regular rate and rhyth m. No murmur. No JVD. - ABDOMEN: Soft, nontender and non-diste nded. No palpable masses. - EXTREMITIES: No edema. Peripheral puls es 2+. Non-tender. - NEUROLOGIC: No focal neurological defi cits. CN II-XII grossly intact. - PSYCHIATRIC: Awake, Alert and oriented x 3. Appropriate mood and affect. - SKIN: No rashes or lesions. Warm. DS: Data Data Completed and Pending Labs on day of discharge: Labs from last 24 hours 09/30/24 05:57 WBC 8.4 RBC 4.36 L Hgb 14.1 Hct 40.9 L MCV 93.8 MCH 32.3 MCHC 34.5 RDW 12.4 Plt Count 125 L MPV 9.8 Immature Gran % (Auto) 0.4 Neut % (Auto) 75.6 H Lymph % (Auto) 13.9 L [place] % (Auto) 8.6 H Eos % (Auto) 1.1 Baso % (Auto) 0.4 Lymph # (Auto) 1.16 [place] # (Auto) 0.7 H Eos # (Auto) 0.1 Baso # (Auto) 0.0 Abs Immat Gran (auto) 0.03 Absolute Neuts (auto) 6.3 Absolute Nucleated RBC 0.000 Nucleated RBC % 0.0 % Immature Plt Fraction 2.5 Sodium 133 L Potassium 4.2 Chloride 98 Carbon Dioxide 28 Anion Gap 7 BUN 18 Creatinine 1.10 Estim Creat Clear Calc 76 Estimated GFR > 60 Glucose 113 H Calcium 9.1 Magnesium 1.9 Total Bilirubin 1.0 AST 26 ALT 24 Alkaline Phosphatase 55 Total Protein 7.0 Albumin 4.0 Imaging Radiologist's impression: ITS Impressions Abdomen/Pelvis CT 09/28/24 06:05 Impression: Findings consistent with small bowel obstruction, transition point likely at the enterocolonic anastomosis. Evidence of prior right hemicolectomy. Abdomen X-Ray 09/28/24 07:34 Impression: NG tube side-port at GE junction region. Further advancement into the stomach advised. Probable small bowel obstruction. Small Bowel X-Ray 09/28/24 13:00 IMPRESSION: 1. Dilated small bowel with normal transit time to the colon, consistent with adynamic ileus versus partial small bowel obstruction. Discharge Plan Discharge Attending physician on discharge: Herbert Mendez Consulting providers: Charanjit Coto Discharging Clinician: Herbert Mendez Anticipated Discharge Date/Time: 09/30/24 13:23 Patient Disposition: Home, Self-Care Activity: as tolerated Diet: low fiber Patient Instructions: Antibiotic Form Stand Alone Forms: General Discharge Information Follow-up/Referrals: Gilberto,Cuate Bernabe MD [Primary Care Provider] - 1 Week Discharge Medications: Continued methocarbamol 500 mg tablet 500 mg PO TID PRN (Reason: Muscle Spasm) hydroxychloroquine 200 mg tablet 200 mg PO BID Promacta 75 mg tablet 75 mg PO HS omeprazole 40 mg capsule,delayed release(DR/EC) 40 mg PO DAILY lorazepam 1 mg tablet 0.5 mg PO TID PRN (Reason: Muscle Spasm) Date of admission: 09/28/24 10:10 Primary Care Provider: Cuate Patten Admitting Provider: Erika Casey Attending physician on admission: Erika Casey Condition: Stable
--- NOTE | 2024-09-30 14:16 | PC.NURSE ---
On 09/30/24, the DESKTOP SPECIALIST,Sherie Gayle, provided care and [facility]. I have reviewed the DESKTOP SPECIALIST's documentation and agree with the findings.
== END 2024-09-30 14:15 | disposition home or self-care (01) | DRG 389 ==
LOC: ANHED 06:46 → ANH3MEDSUR 07:46
PROVIDERS: Nurse Practitioner Family; Admitting Provider Hospitalist; Emergency Provider Emergency Medicine; PCP Family Medicine; Visit Provider Internal Medicine
DX: K56.609 Unspecified intestinal obstruction, unspecified as to partial versus complete obstruction (principal); E87.1 Hypo-osmolality and hyponatremia; Z94.81 Bone marrow transplant status; Z94.84 Stem cells transplant status; D69.6 Thrombocytopenia, unspecified; E86.0 Dehydration; G89.29 Other chronic pain; K21.9 Gastro-esophageal reflux disease without esophagitis; M54.2 Cervicalgia; M06.9 Rheumatoid arthritis, unspecified; Z85.6 Personal history of leukemia; Z90.49 Acquired absence of other specified parts of digestive tract; Z92.21 Personal history of antineoplastic chemotherapy
CPT/HCPCS: 36415; 74177; 74250; 80048; 80053; 81001; 83605; 83690; 83735; 84100; 85025; 85055; 85610; 85730; 96361; 96365; 96375; 96376; 99285; A9270; G0378; J1171; J2060; J2405; J2470; J3475; J7030; J7120; Q9967

== ENCOUNTER 2025-04-10 09:36 | Inpatient (IN) | payer OTHER, SELFPAY ==
[2025-04-10] VITALS (14 sets, daily range): BP systolic 118–144; BP diastolic 73–122; PULSE 73–96; RESP 12–27; TEMP 36.4–37; O2SAT 97–100; BMI 21.1
--- NOTE | ~2025-04-10 | XR_ITS ---
Portable chest x-ray Comparison: 02/26/2024 Clinical History: Shortness of breath Findings: Lungs are clear, without focal consolidation or pleural effusion. Cardiomediastinal silho uette is stable. Bones and soft tissues are unremarkable. Impression: Normal chest. Reviewed, dictated and finalized at location . Impression: Normal chest.
--- NOTE | ~2025-04-10 | CT_ITS ---
Clinical Indication: Shortness of breath, recent bowel resection CT Scan of the Chest, Abdomen, and Pelvis with Contrast: Technique: Contiguous sections were acquired throughout the chest, abdomen, and pelvis after intraven ous administration of 100 cc of Omnipaque 350. Dose reduction technique was used on this scan by uti nicholeing automated exposure control and iterative reconstruction technique. The dose-length product (DL P) was 481.20 mGy-cm. Findings: There is no evidence of any significant mediastinal, hilar or axillary lymphadenopathy. The mediastin al soft tissues appear normal. No pulmonary embolus. No aortic aneurysm or dissection. There is no evidence of pleural or pericardial effusion. The lungs are clear. No pulmonary nodules or infiltrates are noted. The liver, spleen, pancreas, gallbladder, adrenals and kidneys are within normal limits. No evidence of aortic aneurysm. No lymphadenopathy. Evidence of prior partial right colectomy with enterocolonic anastomosis present. There are a few mil dly distended small bowel loops in the left upper quadrant, nonspecific. There is haziness in the mes entery about the operative site. There is asymmetric prominence of the left rectus abdominis muscle w hich could reflect postoperative change or evolving subacute to chronic hematoma. No hernia or free a ir evident. No distinct abscess evident. Urinary bladder is unremarkable. No pelvic mass seen. No pelvic ascites. Impression: Evidence of recent bowel surgery with enterocolonic anastomosis and presumed postoperative haziness a bout the operative bed region. No abscess or free air. A few mildly distended left upper quadrant sma ll bowel are present, which could reflect residual mild postoperative ileus. Early obstruction not co mpletely excluded, though felt to be less likely overall. Focal asymmetric prominence of the left rectus abdominous muscle, which represents postoperative benitez ge and/or evolving small hematoma. No significant abnormality the chest. Clear lungs. No pulmonary embolus. Reviewed, dictated and finalized at location . Impression: Evidence of recent bowel surgery with enterocolonic anastomosis and presumed po stoperative haziness about the operative bed region. No abscess or free air. A few mildly distended left upper quadrant small bowel are present, which could r eflect residual mild postoperative ileus. Early obstruction not completely excl uded, though felt to be less likely overall. Focal asymmetric prominence of the left rectus abdominous muscle, which represe nts postoperative change and/or evolving small hematoma. No significant abnormality the chest. Clear lungs. No pulmonary embolus.
--- OUTSIDE RECORDS SUMMARY | 2025-04-10 09:39 | XMS_ITS | Clinical Summary ---
Author Organization [facility] Address [address] [place] [address] Phone Care Team Providers Care Real Estate Appraiser Name Role Phone Provider, None Primary Care Provider Unavailabl e Allergies No known active allergies Medications ondansetron (ZOFRAN-ODT) 4 MG TABLET DISPERSIBLE Take 1 Tablet by mouth every 8 hours as needed for Nausea - 1st line. 15 Tablet Active HYDROcodone-acet aminophen (NORCO) 5-325 MG TabletIndication s:Partial small bowel obstruction (HCC) Take 1-2 Tablets by mouth every 4 hours as needed for Moderate or more severe pain. 15 Tablet Active Encounters Date Type Department Care Team Description 01/13/2025 12:42 PM JEWEL HOLE GAUGER - 01/13/2025 5:00 PM JEWEL HOLE GAUGER Emergency [facility] Emergency Dept [address] [place] [address] Jaspal Smith MD Partial small bowel obstruction (HCC) Discharge Disposition: Discharged to home or Selfcare 01/13/2025 Travel from Last 3 Months Social History Tobacco Use Types Packs/Day Years Used Date Smoking Tobacco: Never Assessed Sex and Gender Information Value Date Recorded Sex Assigned at Not on file Legal Sex Male 12:19 PM JEWEL HOLE GAUGER Gender Identity Not on file Sexual Orientation Not on file Last Filed Vital Signs Vital Sign Reading Time Taken Comments Blood Pressure 154/99 01/13/2025 1:11 PM JEWEL HOLE GAUGER Pulse 80 01/13/2025 1:11 PM JEWEL HOLE GAUGER Temperature 36.4 C (97.6 F) 01/13/2025 12:28 PM JEWEL HOLE GAUGER Respiratory Rate 18 01/13/2025 1:11 PM JEWEL HOLE GAUGER Oxygen Saturation 99% 01/13/2025 1:11 PM JEWEL HOLE GAUGER Inhaled Oxygen Concentration - - Weight 77.1 kg (170 lb) 01/13/2025 12:28 PM JEWEL HOLE GAUGER Height 177.8 cm (5' 10) 01/13/2025 12:28 PM JEWEL HOLE GAUGER Body Mass Index 24.39 01/13/2025 12:28 PM JEWEL HOLE GAUGER Plan of Treatment Health Maintenance Due Date Last Done Comments Hepatitis C Virus (HCV) Screening 1974 Colonoscopy 2019 Colorectal Cancer Screening 2019 Influenza Immunization (#1) 07/16/202409/15, 09/08/2022, 09/02/2021, Additional history exists SARS-COV-2 Immunization (3 - season) 2024 02/26/2021, 01/29/2021 Cologuard 2024 Immunochemical Fecal Occult Blood 2024 Zoster Immunization (2 of 2) 2024 03/17/2024, 09/24/2023 Pneumococcal Immunization (50+ years) (3 of 3 - PCV20 or PCV21) 03/17/2029 03/17/2024, 09/24/2023, 02/26/2023, Additional history exists Respiratory Syncytial Virus (RSV) Immunization (Adult) (1 - 1-dose 75+ series) 2049 Hepatitis B Immunization Completed 023, 02/26/2023, 09/11/2022 TdaP Immunization Completed 09/24/2023 Meningococcal Immunization (ACWY) Aged Out No longer eligible based on patient's age to complete this topic Rotavirus Immunization Aged Out No lo nger eligible based on patient's age to complete this topic Procedures Procedure Name Priority Date/Time Associated Diagnosis Comments CT ABDOMEN PELVIS W/ CONTRAST Stat with Interpretation 01/13/2025 2:55 PM JEWEL HOLE GAUGER URINALYSIS REFLEX IF INDICATED BY ABNORMAL RESULTS STAT 01/13/2025 12:54 PM JEWEL HOLE GAUGER CBC WITH AUTO DIFFERENTIAL STAT 01/13/2025 12:39 PM JEWEL HOLE GAUGER LIPASE STAT 01/13/2025 12:39 PM JEWEL HOLE GAUGER CMP (COMPREHENSIVE METABOLIC PANEL) STAT 01/13/2025 12:39 PM JEWEL HOLE GAUGER COMPLETE BLOOD COUNT (CBC) WITH DIFF STAT 01/13/2025 12:39 PM JEWEL HOLE GAUGER from Last 3 Months Results * CT ABDOMEN PELVIS W/ CONTRAST (01/13/2025 2:55 PM JEWEL HOLE GAUGER) Anatomical Region Laterality Modality Abdomen N/A Computed Tomogra phy 01/13/2025 2:55 PM JEWEL HOLE GAUGER Impressions 01/13/2025 3:47 PM JEWEL HOLE GAUGER IMPRESSION: 1. Multiple dilated loops of small bowel within the left abdomen are demonstrated without a well-defined transition point. Cannot rule out partial bowel obstruction. 2. Postoperative changes of prior partial colectomy with colon to colon anastomosis and relative decompression of the bowel distal to the anastomosis site in the mid abdomen. Findings are concerning for stasis and partial obstruction at the anastomotic site. No prior imaging is available for review. Cannot rule out a stricture within this area. As the attending physician, I have personally reviewed this study and agree with this interpretation. Josh Shields MD. Narrative 01/13/2025 3:47 PM JEWEL HOLE GAUGER DICTATING PHYSICIAN: Keri Iverson MD EXAM: CT ABDOMEN PELVIS W/ CONTRAST, 01/13/2025 2:55 PM INDICATION: 49-year-old with acute flank pain, kidney stone suspected. Bowel obstruction suspected. Acute nonlocalized abdominal pain. COMPARISON: None. PROCEDURE: 100 mL of Isovue 300 was injected IV. Radiation dose reduction techniques were employed. CTDIvol: 2.5 - 24.7 mGy. DLP: 705 mGy-cm. FINDINGS: ABDOMEN: Liver: Normal size and homogeneous parenchyma. Gallbladder: No calcified gallstones. No bile duct dilatation. Pancreas: No mass or adjacent stranding. Normal caliber duct. Spleen: Normal. Adrenals: Normal. Kidneys: No calculus, mass or hydronephrosis. Aorta: Normal caliber. IVC: Normal. Retroperitoneum: No adenopathy. Stomach and visualized esophagus: No abnormality. PELVIS: Reproductive Organs: No pelvic mass. Mildly enlarged prostate measures 4.9 cm in transverse diameter. Bladder: Incompletely distended. No calculus. Colon: The distal half of the transverse colon through the rectum appears decompressed. There is a large stool burden in the remaining colon, with postoperative changes of prior partial colectomy with colon to colon anastomosis in the mid central abdomen. The anastomosis appears intact. There is questionable narrowing is of the transverse colon at the anastomosis site is noted on image 78 series 303 with decompression of the colon distally. Appendix: Not demonstrated. No focal fat stranding or fluid collection. Small Bowel: There are multiple loops of mildly dilated small bowel in the left hemiabdomen without a well-defined transition point. Bowel anastomosis site in the right upper abdomen appears intact. Mesentery: No adenopathy. Normal splanchnic veins. Peritoneum: No free air or concerning free fluid. Lower chest: Lung bases are clear. Bones: No destructive lesion. Intervertebral disc postoperative changes at L4- L5. Body wall: No abnormality demonstrated. . Procedure Note Josh Shields MD - 01/13/2025 DICTATING PHYSICIAN: Keri Iverson MD EXAM: CT ABDOMEN PELVIS W/ CONTRAST, 01/13/2025 2:55 PM INDICATION: 49-year-old with acute flank pain, kidney stone suspected.Bowel obstruction suspected. Acute nonlocalized abdominal pain. COMPARISON: None. PROCEDURE: 100 mL of Isovue 300 was injected IV. Radiation dose reductiontechniques were employed. CTDIvol: 2.5 - 24.7 mGy. DLP: 705 mGy-cm. FINDINGS: ABDOMEN: Liver: Normal size and homogeneous parenchyma. Gallbladder: No calcified gallstones. No bile duct dilatation. Pancreas: No mass or adjacent stranding. Normal caliber duct. Spleen: Normal. Adrenals: Normal. Kidneys: No calculus, mass or hydronephrosis. Aorta: Normal caliber. IVC: Normal. Retroperitoneum: No adenopathy. Stomach and visualized esophagus: No abnormality. PELVIS: Reproductive Organs: No pelvic mass. Mildly enlarged prostate measures 4.9cm in transverse diameter. Bladder: Incompletely distended. No calculus. Colon: The distal half of the transverse colon through the rectum appearsdecompressed. There is a large stool burden in the remaining colon, withpostoperative changes of prior partial colectomy with colon to colonanastomosis in the mid central abdomen. The anastomosis appears intact.There is questionable narrowing is of the transverse colon at theanastomosis site is noted on image 78 series 303 with decompression of thecolon distally. Appendix: Not demonstrated. No focal fat stranding or fluid collection. Small Bowel: There are multiple loops of mildly dilated small bowel in theleft hemiabdomen without a well-defined transition point. Bowelanastomosis site in the right upper abdomen appears intact. Mesentery: No adenopathy. Normal splanchnic veins. Peritoneum: No free air or concerning free fluid. Lower chest: Lung bases are clear. Bones: No destructive lesion. Intervertebral disc postoperative changes atL4-L5. Body wall: No abnormality demonstrated. . IMPRESSION: 1. Multiple dilated loops of small bowel within the left abdomen aredemonstrated without a well-defined transition point. Cannot rule outpartial bowel obstruction. 2. Postoperative changes of prior partial colectomy with colon to colonanastomosis and relative decompression of the bowel distal to theanastomosis site in the mid abdomen. Findings are concerning for stasisand partial obstruction at the anastomotic site. No prior imaging isavailable for review. Cannot rule out a stricture within this area. As the attending physician, I have personally reviewed this study andagree with this interpretation. Josh Shields MD. Jessica Pitts MD IMG CT ORDERABLES Fin al Result * (ABNORMAL) Urinalysis w/ Reflex (01/13/2025 12:54 PM JEWEL HOLE GAUGER) SPECIFIC GRAVITY 1.023 1.003 - 1.030 01/13/2025 1:23 PM JEWEL HOLE GAUGER [facility] URINE PH 5.5 5.0 - 9.0 01/13/2025 1:23 PM JEWEL HOLE GAUGER [facility] WBC ESTERASE Negative Negative 01/13/2025 1:23 PM JEWEL HOLE GAUGER [facility] NITRITE Negative Negative 01/13/2025 1:23 PM JEWEL HOLE GAUGER [facility] PROTEIN, RANDOM URINE Negative Negative 01/13/2025 1:23 PM JEWEL HOLE GAUGER [facility] URINE GLUCOSE, QUAL Trace(A) Negative 01/13/2025 1:23 PM JEWEL HOLE GAUGER [facility] URINE KETONES Negative Negative 01/13/2025 1:23 PM JEWEL HOLE GAUGER [facility] UROBILINOGEN 0.2 0.2 , 1.0 , Normal mg/dL 01/13/2025 1:23 PM [facility] URINE BLOOD Negative Negative harvey/ul 01/13/2025 1:23 PM [facility] URINALYSIS COLOR Yellow 01/14/20 1:23 PM [facility] URINALYSIS CLARITY Clear 01/13/2025 1:23 PM [facility] Urine URINE SPECIMEN / Unknown Non-Phlebotomy Collection / Unknown 01/13/2025 12:54 PM JEWEL HOLE GAUGER 01/13/2025 1:09 PM JEWEL HOLE GAUGER [facility] [employer] MD URINE ORDERABLES Final Result Performing Organization Address City/State/[facility] de Phone Number [facility] [address] [place] [address], * CBC with Auto Differential (01/13/2025 12:39 PM JEWEL HOLE GAUGER) WBC 5.03 4.00 - 12.00 10(3)/mcL 01/13/2025 12:54 PM [facility] RBC 4.72 4.40 - 5.80 10(6)/mcL 01/13/2025 12:54 PM [facility] HEMOGLOBIN (HGB) 14.6 13.0 - 16.5 g/dL 01/13/2025 12:54 PM [facility] HEMATOCRIT (HCT) 42.2 38.0 - 50.0 % 01/13/2025 12:54 PM [facility] MCV 89.4 82.0 - 96.0 fL 01/13/2025 12:54 PM [facility] MCH 30.9 26.0 - 32.0 pg 01/13/2025 12:54 PM [facility] MCHC 34.6 31.0 - 36.0 g/dL 01/13/2025 12:54 PM [facility] PLATELET COUNT 146 140 - 440 10(3)/[facility] 01/13/2025 12:54 PM [facility] RDW 12.2 11.8 - 15.5 % 01/13/2025 12:54 PM [facility] MPV 9.4 8.0 - 12.6 fL 01/13/2025 12:54 PM [facility] NEUTROPHILS 66.0 40.0 - 68.0 % 01/13/2025 12:54 PM [facility] LYMPHOCYTES 25.8 19.0 - 49.0 % 01/13/2025 12:54 PM [facility] MONOCYTES 7.2 3.0 - 13.0 % 01/13/2025 12:54 PM [facility] EOSINOPHILS 0.6 0.0 - 8.0 % 01/13/2025 12:54 PM [facility] BASOPHILS 0.4 0.0 - 1.0 % 01/13/2025 12:54 PM [facility] ABSOLUTE NEUTROPHILS 3.32 1.40 - 5.30 10(3)/[facility] 01/13/2025 12:54 PM [facility] ABSOLUTE LYMPHOCYTES 1.30 0.90 - 3.30 10(3)/[facility] 01/13/2025 12:54 PM [facility] ABSOLUTE MONOCYTES 0.36 0.10 - 0.90 10(3)/[facility] 01/13/2025 12:54 PM [facility] ABSOLUTE EOSINOPHIL 0.03 0.00 - 0.50 10(3)/[facility] 01/13/2025 12:54 PM [facility] ABSOLUTE BASOPHILS 0.02 0.00 - 0.10 10(3)/[facility] 01/13/2025 12:54 PM [facility] NRBC PER 100 WBC 0 01/14/20 12:54 PM [facility] Blood Venipuncture / Unknown 01/13/2025 12:39 PM JEWEL HOLE GAUGER 01/13/2025 12:44 PM JEWEL HOLE GAUGER [employer] MD HEMATOLOGY ORDERABLES Final Result [facility] [address] [place] [address], [place] * Lipase (01/13/2025 12:39 PM JEWEL HOLE GAUGER) LIPASE 28 8 - 78 U/L 01/13/2025 1:09 PM [facility] Blood Venipuncture / Unknown 01/13/2025 12:39 PM JEWEL HOLE GAUGER 01/13/2025 12:44 PM JEWEL HOLE GAUGER us [employer] MD CHEMISTRY ORDERABLES F inal Result [facility] [address] [place] [address], [place] * (ABNORMAL) CMP (01/13/2025 12:39 PM JEWEL HOLE GAUGER) SODIUM 139 136 - 145 mmol/L 01/13/2025 1:09 PM [facility] POTASSIUM 4.2 3.5 - 5.1 mmol/L 01/13/2025 1:09 PM [facility] CHLORIDE 107 98 - 107 mmol/L 01/13/2025 1:09 PM [facility] CO2, VENOUS 21(L) 22 - 30 mmol/L 01/13/2025 1:09 PM [facility] ANION GAP 11.0 <18.0 mmol/L 01/13/2025 1:09 PM [facility] GLUCOSE 203(H) 70 - 99 mg/dL 01/13/2025 1:09 PM [facility] BUN 19 8 - 26 mg/dL 01/13/2025 1:09 PM [facility] CREATININE, BLOOD 1.07 0.70 - 1.30 mg/dL 01/13/2025 1:09 PM [facility] BUN/CREATININE RATIO 18 12 - 20 ratio 01/13/2025 1:09 PM [facility] TOTAL PROTEIN 7.1 6.0 - 8.0 g/dL 01/13/2025 1:09 PM [facility] ALBUMIN 4.4 3.5 - 5.0 g/dL 01/13/2025 1:09 PM [facility] A/G RATIO 1.6 1.0 - 2.2 01/13/2025 1:09 PM [facility] CALCIUM 8.8 8.7 - 10.5 mg/dL 01/13/2025 1:09 PM [facility] T BILI 0.5 0.2 - 1.2 mg/dL 01/13/2025 1:09 PM [facility] SGOT (AST) 32 <43 U/L 01/13/2025 1:09 PM [facility] SGPT (ALT) 38 <56 U/L 01/13/2025 1:09 PM [facility] ALKALINE PHOSPHATASE 56 40 - 150 U/L 01/13/2025 1:09 PM [facility] GFR, ESTIMATED >60 >=60 01/13/2025 1:09 PM [facility] Comment: Creatinine Clearance is the preferred criteria for selecting drug dose adjustments in renally impaired patients. The GFR is provided as additional pertinent clinical information. GFR is reported in mL/min/1.73 sq m. Calculation based on the Chronic Kidney Disease Epidemiology Collaboration (CKD- EPI) equation refit without adjustment for race. GFR, EST. >60 >=60 025 1:09 PM [facility] GFR, EST. NONAFRICAN >60 >=60 01/13/2025 1:09 PM [facility] Blood Venipuncture / Unknown 01/13/2025 12:39 PM JEWEL HOLE GAUGER 01/13/2025 12:44 PM [facility] us Black Santa MD CHEMISTRY ORDERABLES F inal Result [facility] [address] [facility] [place] [address], from Last 3 Months Insurance [facility] Care Teams Real Estate Appraiser Relationship Specialty Start Date End Date Provider, None [place] PCP - General 01/13/25
--- NOTE | 2025-04-10 09:55 | ECG_ITS ---
Test Date: 2025-04-10 10:11:33 Measurements Intervals [place] Rate: 90 P: 0 LA: 0 QRS: 9 QRSD: 80 T: 73 QT: 363 QTc: 445 Interpretive Statements SUPRAVENTRICULAR RHYTHM, PROBABLY SINUS SIGNIFICANT BASELINE ARTIFACT, WHICH LIMITS INTERPRETATION. No previous ECG available for comparison Electronically Signed On 04-10-2025 14:25:02 CDT by Jaime Leiva M.D.
[2025-04-10] MEDS: LORazepam INJ (*CRX) 2 MG/ML VIAL 1 MG IV PUSH (10:21)
[2025-04-10] MEDS: SODIUM CHLORIDE 0.9% IV 1,000 ML 999 ML IV CONT (10:24)
--- NOTE | 2025-04-10 10:30 | PC.NURSE ---
Pt refusing to let RN check blood pressure stating It hurts too much, I'm not doing this right now. RN tried to educate pt that vital signs are needed to monitor him, pt still refusing.
--- OUTSIDE RECORDS SUMMARY | 2025-04-10 10:32 | XMS_ITS | Clinical Summary ---
Author Organization [facility] Address [address] [place] [address] Phone Care Team Providers Care Creel Selector Name Role Phone Provider, None Primary Care [...] Department Care Team Description 01/13/2025 12:42 PM SACK REPAIRER - 01/13/2025 5:00 PM SACK REPAIRER Emergency [facility] Emergency Dept [address] [place] [address] Jaspal Smith MD Partial small bowel obstruction (HCC) Discharge Disposition: Discharged to home or Selfcare 01/13/2025 Travel from Last 3 Months Social History Tobacco Use Types Packs/Day Years Used Date Smoking Tobacco: Never Assessed Sex and Gender Information Value Date Recorded Sex Assigned at Not on file Legal Sex Male 12:19 PM SACK REPAIRER Gender Identity Not on file Sexual Orientation Not on file Last Filed Vital Signs Vital Sign Reading Time Taken Comments Blood Pressure 154/99 01/13/2025 1:11 PM SACK REPAIRER Pulse 80 01/13/2025 1:11 PM SACK REPAIRER Temperature 36.4 C (97.6 F) 01/13/2025 12:28 PM SACK REPAIRER Respiratory Rate 18 01/13/2025 1:11 PM SACK REPAIRER Oxygen Saturation 99% 01/13/2025 1:11 PM SACK REPAIRER Inhaled Oxygen Concentration - - Weight 77.1 kg (170 lb) 01/13/2025 12:28 PM SACK REPAIRER Height 177.8 cm (5' 10) 01/13/2025 12:28 PM SACK REPAIRER Body Mass Index 24.39 01/13/2025 12:28 PM SACK REPAIRER Plan of Treatment Health Maintenance Due Date [...] CONTRAST Stat with Interpretation 01/13/2025 2:55 PM SACK REPAIRER URINALYSIS REFLEX IF INDICATED BY ABNORMAL RESULTS STAT 01/13/2025 12:54 PM SACK REPAIRER CBC WITH AUTO DIFFERENTIAL STAT 01/13/2025 12:39 PM SACK REPAIRER LIPASE STAT 01/13/2025 12:39 PM SACK REPAIRER CMP (COMPREHENSIVE METABOLIC PANEL) STAT 01/13/2025 12:39 PM SACK REPAIRER COMPLETE BLOOD COUNT (CBC) WITH DIFF STAT 01/13/2025 12:39 PM SACK REPAIRER from Last 3 Months Results * CT ABDOMEN PELVIS W/ CONTRAST (01/13/2025 2:55 PM SACK REPAIRER) Anatomical Region Laterality Modality Abdomen N/A Computed Tomogra phy 01/13/2025 2:55 PM SACK REPAIRER Impressions 01/13/2025 3:47 PM SACK REPAIRER IMPRESSION: 1. Multiple dilated loops of small [...] Josh Shields MD. Narrative 01/13/2025 3:47 PM SACK REPAIRER DICTATING PHYSICIAN: Keri Iverson MD EXAM: CT [...] (ABNORMAL) Urinalysis w/ Reflex (01/13/2025 12:54 PM SACK REPAIRER) SPECIFIC GRAVITY 1.023 1.003 - 1.030 01/13/2025 1:23 PM SACK REPAIRER [facility] URINE PH 5.5 5.0 - 9.0 01/13/2025 1:23 PM SACK REPAIRER [facility] WBC ESTERASE Negative Negative 01/13/2025 1:23 PM SACK REPAIRER [facility] NITRITE Negative Negative 01/13/2025 1:23 PM SACK REPAIRER [facility] PROTEIN, RANDOM URINE Negative Negative 01/13/2025 1:23 PM SACK REPAIRER [facility] URINE GLUCOSE, QUAL Trace(A) Negative 01/13/2025 1:23 PM SACK REPAIRER [facility] URINE KETONES Negative Negative 01/13/2025 1:23 PM SACK REPAIRER [facility] UROBILINOGEN 0.2 0.2 , 1.0 , Normal mg/dL 01/13/2025 1:23 PM [facility] URINE BLOOD Negative Negative harvey/ul 01/13/2025 1:23 PM [facility] URINALYSIS COLOR Yellow 01/14/20 1:23 PM [facility] URINALYSIS CLARITY Clear 01/13/2025 1:23 PM [facility] Urine URINE SPECIMEN / Unknown Non-Phlebotomy Collection / Unknown 01/13/2025 12:54 PM SACK REPAIRER 01/13/2025 1:09 PM SACK REPAIRER us Black Santa MD URINE ORDERABLES Final Result Performing Organization Address City/State/[facility] de Phone Number [facility] [address] [place] [address], * CBC with Auto Differential (01/13/2025 12:39 PM SACK REPAIRER) WBC 5.03 4.00 - 12.00 10(3)/mcL 01/13/2025 12:54 PM [facility] RBC 4.72 4.40 - 5.80 10(6)/mcL 01/13/2025 12:54 PM [facility] HEMOGLOBIN (HGB) 14.6 13.0 - 16.5 g/dL 01/13/2025 12:54 PM [facility] HEMATOCRIT (HCT) 42.2 38.0 - 50.0 % 01/13/2025 12:54 PM [facility] MCV 89.4 82.0 - 96.0 fL 01/13/2025 12:54 PM [facility] MCH 30.9 26.0 - 32.0 pg 01/13/2025 12:54 PM [facility] MCHC 34.6 31.0 - 36.0 g/dL 01/13/2025 12:54 PM [facility] PLATELET COUNT 146 140 - 440 10(3)/[facility] 01/13/2025 12:54 PM [facility] RDW 12.2 11.8 - 15.5 % 01/13/2025 12:54 PM [facility] MPV 9.4 8.0 - 12.6 fL 01/13/2025 12:54 PM [facility] NEUTROPHILS 66.0 40.0 - 68.0 % 01/13/2025 12:54 PM [facility] LYMPHOCYTES 25.8 19.0 - 49.0 % 01/13/2025 12:54 PM [facility] MONOCYTES 7.2 3.0 - 13.0 % 01/13/2025 12:54 PM [facility] EOSINOPHILS 0.6 0.0 - 8.0 % 01/13/2025 12:54 PM [facility] BASOPHILS 0.4 0.0 - 1.0 % 01/13/2025 12:54 PM [facility] ABSOLUTE NEUTROPHILS 3.32 1.40 - 5.30 10(3)/[facility] 01/13/2025 12:54 PM [facility] ABSOLUTE LYMPHOCYTES 1.30 0.90 - 3.30 10(3)/[facility] 01/13/2025 12:54 PM [facility] ABSOLUTE MONOCYTES 0.36 0.10 - 0.90 10(3)/[facility] 01/13/2025 12:54 PM [facility] ABSOLUTE EOSINOPHIL 0.03 0.00 - 0.50 10(3)/[facility] 01/13/2025 12:54 PM [facility] ABSOLUTE BASOPHILS 0.02 0.00 - 0.10 10(3)/[facility] 01/13/2025 12:54 PM [facility] NRBC PER 100 WBC 0 01/14/20 12:54 PM [facility] Blood Venipuncture / Unknown 01/13/2025 12:39 PM SACK REPAIRER 01/13/2025 12:44 PM SACK REPAIRER us Black Santa MD HEMATOLOGY ORDERABLES Final Result [facility] [address] [place] [address], [place] * Lipase (01/13/2025 12:39 PM SACK REPAIRER) LIPASE 28 8 - 78 U/L 01/13/2025 1:09 PM [facility] Blood Venipuncture / Unknown 01/13/2025 12:39 PM SACK REPAIRER 01/13/2025 12:44 PM SACK REPAIRER us Black Santa MD CHEMISTRY ORDERABLES F inal Result [facility] [address] [place] [address], [place] * (ABNORMAL) CMP (01/13/2025 12:39 PM SACK REPAIRER) SODIUM 139 136 - 145 mmol/L 01/13/2025 1:09 PM [facility] POTASSIUM 4.2 3.5 - 5.1 mmol/L 01/13/2025 1:09 PM [facility] CHLORIDE 107 98 - 107 mmol/L 01/13/2025 1:09 PM [facility] CO2, VENOUS 21(L) 22 - 30 mmol/L 01/13/2025 1:09 PM [facility] ANION GAP 11.0 <18.0 mmol/L 01/13/2025 1:09 PM [facility] GLUCOSE 203(H) 70 - 99 mg/dL 01/13/2025 1:09 PM [facility] BUN 19 8 - 26 mg/dL 01/13/2025 1:09 PM [facility] CREATININE, BLOOD 1.07 0.70 - 1.30 mg/dL 01/13/2025 1:09 PM [facility] BUN/CREATININE RATIO 18 12 - 20 ratio 01/13/2025 1:09 PM [facility] TOTAL PROTEIN 7.1 6.0 - 8.0 g/dL 01/13/2025 1:09 PM [facility] ALBUMIN 4.4 3.5 - 5.0 g/dL 01/13/2025 1:09 PM [facility] A/G RATIO 1.6 1.0 - 2.2 01/13/2025 1:09 PM [facility] CALCIUM 8.8 8.7 - 10.5 mg/dL 01/13/2025 1:09 PM [facility] T BILI 0.5 0.2 - 1.2 mg/dL 01/13/2025 1:09 PM [facility] SGOT (AST) 32 <43 U/L 01/13/2025 1:09 PM [facility] SGPT (ALT) 38 <56 U/L 01/13/2025 1:09 PM [facility] ALKALINE PHOSPHATASE 56 40 - 150 U/L 01/13/2025 1:09 PM [facility] GFR, ESTIMATED >60 >=60 01/13/2025 1:09 PM [facility] Comment: Creatinine Clearance is the preferred criteria for selecting drug dose adjustments in renally impaired patients. The GFR is provided as additional pertinent clinical information. GFR is reported in mL/min/1.73 sq m. Calculation based on the Chronic Kidney Disease Epidemiology Collaboration (CKD- EPI) equation refit without adjustment for race. GFR, EST. >60 >=60 025 1:09 PM [facility] GFR, EST. NONAFRICAN >60 >=60 01/13/2025 1:09 PM [facility] Blood Venipuncture / Unknown 01/13/2025 12:39 PM SACK REPAIRER 01/13/2025 12:44 PM [facility] us Black Santa MD CHEMISTRY ORDERABLES F inal Result [facility] [address] [place] [address], from Last 3 Months Insurance [facility] Care Teams Creel Selector Relationship Specialty Start Date End Date Provider, None [place] PCP - General 01/13/25
[2025-04-10] MEDS: MORPHINE SULFATE (*CRX) 4 MG/ML INJ IV PUSH (10:33)
[2025-04-10 10:36] LABS: Basophils Percent Auto 0.7 % (0.2-1.2); Eosinophils Percent Auto 0.7 % (0-4.4); Hematocrit 37.7 % (42.0-52.0); Hemoglobin 11.9 g/dL (14.0-18.0); Immature Granulocyte Absolute 0.02 K/mm3 (0.00-0.031); Immature Granulocyte Percent A 0.3 % (0-0.5); Lymphocytes Absolute Auto 2.13 K/mm3 (0.9-3.2); Lymphocytes Percent Auto 34.9 % (18.3-44.2); Mean Corpuscular HGB Conc 31.6 g/dl (32-36); Mean Corpuscular Hemoglobin 27.4 pg (26-34); Mean Corpuscular Volume 86.7 fl (80-100); Mean Platelet Volume 9.8 fl (7.4-10.4); Monocytes Absolute Auto 0.4 K/mm3 (0.1-0.6); Monocytes Percent Auto 6.4 % (2.6-8.5); Neutrophils Absolute Auto 3.5 K/mm3 (1.3-6.7); Platelet Count Result 149 k/mm3 (150-375); Red Blood Count 4.35 M/mm3 (4.6-6.20); Red Cell Distribution Width 13.5 % (11.5-14.5); White Blood Count 6.1 K/mm3 (4.5-10.0)
[2025-04-10 10:48] LABS: INR 1.3; Partial Thromboplastin Time 30.3 Seconds (22.3-36.8); Prothrombin Time 16.2 Seconds (11.1-14.7)
[2025-04-10 10:52] LABS: Alanine Aminotransferase 34 U/L (6-50); Albumin Level 4.1 g/dL (3.5-5.1); Alkaline Phosphatase 49 U/L (38-126); Anion Gap 16 mmol/L (4-12); Aspartate Amino Transferase 55 U/L (17-59); Bilirubin,Total 0.7 mg/dL (0.2-1.3); Blood Urea Nitrogen 6 mg/dL (9-20); Calcium 5.9 mg/dL (8.4-10.2); Carbon Dioxide 27 mmol/L (22-30); Chloride 100 mmol/L (98-107); Estimated CRCL calculation 73 ml/min; Estimated Glomerular Filt Rate > 60; Glucose 114 mg/dL (65-110); Lipase 120 U/L (23-300); Magnesium 0.4 mg/dL (1.6-2.3); Potassium 4.1 mmol/L (3.4-5.0); Sodium 143 mmol/L (137-145)
[2025-04-10 10:59] LABS: NT Pro B Type Natriuretic Pept 1620 pg/mL (19.9-100); Troponin I < 0.012 ng/mL (0.000-0.034)
--- NOTE | 2025-04-10 11:09 | ECG_ITS ---
Test Date: 2025-04-10 11:13:52 Measurements Intervals Adrian Rate: 71 P: 56 MS: 143 QRS: -5 QRSD: 81 T: -4 QT: 423 QTc: 462 Interpretive Statements SINUS RHYTHM WITH SINUS ARRHYTHMIA NONSPECIFIC T WAVE ABNORMALITY Compared to ECG 04/10/2025 10:11:33 ARTIFACT NO LONGER PRESENT Electronically Signed On 04-10-2025 14:25:56 CDT by Jaime Leiva M.D.
[2025-04-10] MEDS: CALCIUM GLUC 1,000 MG/NS 50 ML 1,000 MG/50 ML BAG 100 MG IVPB ×2 (11:12→13:06)
[2025-04-10 11:15] LABS: Add Urine Microscopic? NO; Appearance Urine Clear (Clear); Bilirubin Urine Negative (Negative); Blood Urine Negative (Negative); Color Urine Yellow (Yellow); Glucose Urine UA Negative (Negative); Ketones Urine Negative (Negative); Leukocyte Esterase Ur Negative LEU/UL (Negative); Nitrate Urine Negative (Negative); Protein Urine Negative (Negative); Specific Grav Ur 1.004 (1.001-1.035); Urobilinogen Urine 0.2 mg/dL (<2.0)
[2025-04-10 11:51] LABS: Influenza A QL RT-PCR Negative (Negative); Influenza B QL RT-PCR Negative (Negative); RSV RNA, RT-PCR Negative (Negative); SARS-CoV-2 RNA PCR Negative (Negative)
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
--- NOTE | 2025-04-10 13:01 | ECG_ITS ---
Test Date: 2025-04-10 13:10:59 Measurements Intervals [place] Rate: 73 P: 51 AK: 161 QRS: -15 QRSD: 88 T: 3 QT: 426 QTc: 473 Interpretive Statements SINUS RHYTHM NONSPECIFIC T WAVE ABNORMALITY Compared to ECG 04/10/2025 11:13:52 Sinus arrhythmia no longer present Electronically Signed On 04-10-2025 14:28:15 CDT by Jaime Leiva M.D.
[2025-04-10] MEDS: MAGNESIUM SULFATE 3GM/D5W100ML 3 GM/100 ML BAG IVPB (13:15)
[2025-04-10 13:39] LABS: Troponin I < 0.012 ng/mL (0.000-0.034)
[2025-04-10 14:03] LABS: Anion Gap 7 mmol/L (4-12); Blood Urea Nitrogen 6 mg/dL (9-20); Calcium 5.9 mg/dL (8.4-10.2); Carbon Dioxide 32 mmol/L (22-30); Chloride 102 mmol/L (98-107); Estimated CRCL calculation 81 ml/min; Estimated Glomerular Filt Rate > 60; Glucose 105 mg/dL (65-110); Magnesium 0.5 mg/dL (1.6-2.3); Sodium 141 mmol/L (137-145)
[2025-04-10] MEDS: POTASSIUM CHLORIDE INJ 40 MEQ in SODIUM CHLORIDE 0.9% IV 500 ML 130 MEQ IVPB ×2 (14:40→22:14)
[2025-04-10] MEDS: SODIUM CHLORIDE 0.9% IV 1,000 ML 125 ML IV CONT (14:40)
--- NOTE | 2025-04-10 15:54 | ADMGEN ---
This patient, Kofi Escobar, was admitted to IMU Room 202-01. Patient/family oriented to hospital policies and general routines including ID bracelet, bed and alarms, visiting hours, pain management, procedures, bathroom and other care routines, personal items, smoking policy, room service/diet, and visiting hours. Information on how to activate the Rapid Response Team has been discussed. Patient/Family are encouraged to report perceived risks to care and to ask questions if they do not understand what they are told or what they should do.
[2025-04-10] MEDS: oxyCODONE HCL (*CRX) 5 MG TAB IR PO ×2 (17:11→23:14)
[2025-04-10 17:16] LABS: Troponin I 0.012 ng/mL (0.000-0.034)
[2025-04-10] MEDS: POTASSIUM CHLORIDE 20 MEQ ER TABLET PO (19:12)
[2025-04-10 20:52] LABS: Anion Gap 7 mmol/L (4-12); Blood Urea Nitrogen 5 mg/dL (9-20); Calcium 5.5 mg/dL (8.4-10.2); Carbon Dioxide 31 mmol/L (22-30); Chloride 101 mmol/L (98-107); Estimated CRCL calculation 80 ml/min; Estimated Glomerular Filt Rate > 60; Glucose 109 mg/dL (65-110); Magnesium 1.2 mg/dL (1.6-2.3); Potassium 2.4 mmol/L (3.4-5.0); Sodium 139 mmol/L (137-145)
[2025-04-10] MEDS: PANTOPRAZOLE 40 MG TABLET PO (21:10)
[2025-04-10] MEDS: methocarbamoL 500 MG TABLET PO (21:14)
[2025-04-10 22:14] LABS: Phosphorus 2.4 mg/dL (2.5-4.5)
[2025-04-10] MEDS: CALCIUM GLUC 2,000 MG/NS 100ML 2,000 MG/100 ML BAG 100 MG IVPB (22:14)
[2025-04-10] MEDS: MAGNESIUM SULF 4 GM/WATER100ML 4 GM/100 ML BAG IVPB (22:24)
[2025-04-10 22:26] LABS: Parathyroid Intact 38.4 pg/mL (14.5-75.2)
[2025-04-10 22:38] LABS: Vitamin D 25 Hydroxy < 12.8 ng/mL
[2025-04-10] MEDS: LORazepam (*CRX) 0.5 MG TABLET PO (23:14)
[2025-04-10] MEDS: POTASSIUM PHOS/SODIUM PHOS 250 MG TABLET PO (23:15)
[2025-04-11] VITALS (16 sets, daily range): BP systolic 112–144; BP diastolic 60–89; PULSE 70–86; RESP 15–20; TEMP 36.6–37.3; O2SAT 95–100; BMI 23.0
[2025-04-11] MEDS: CALCIUM GLUC 2,000 MG/NS 100ML 2,000 MG/100 ML BAG 100 MG IVPB ×2 (00:53→06:40)
[2025-04-11] MEDS: SODIUM CHLORIDE 0.9% IV 1,000 ML 125 ML IV CONT ×3 (02:19→10:02)
[2025-04-11 05:24] LABS: Basophils Percent Auto 0.6 % (0.2-1.2); Eosinophils Absolute Auto 0.1 K/mm3 (0-0.3); Eosinophils Percent Auto 1.4 % (0-4.4); Hematocrit 31.6 % (42.0-52.0); Hemoglobin 10.1 g/dL (14.0-18.0); Immature Granulocyte Absolute 0.01 K/mm3 (0.00-0.031); Immature Granulocyte Percent A 0.3 % (0-0.5); Lymphocytes Absolute Auto 1.01 K/mm3 (0.9-3.2); Lymphocytes Percent Auto 28.4 % (18.3-44.2); Mean Corpuscular Volume 87.5 fl (80-100); Mean Platelet Volume 9.7 fl (7.4-10.4); Monocytes Absolute Auto 0.2 K/mm3 (0.1-0.6); Monocytes Percent Auto 6.5 % (2.6-8.5); Neutrophils Absolute Auto 2.2 K/mm3 (1.3-6.7); Neutrophils Percent Auto 62.8 % (45.5-73.1); Platelet Count Result 102 k/mm3 (150-375); Red Blood Count 3.61 M/mm3 (4.6-6.20); Red Cell Distribution Width 13.6 % (11.5-14.5); White Blood Count 3.6 K/mm3 (4.5-10.0)
[2025-04-11 05:41] LABS: Alanine Aminotransferase 20 U/L (6-50); Albumin Level 3.3 g/dL (3.5-5.1); Alkaline Phosphatase 58 U/L (38-126); Anion Gap 9 mmol/L (4-12); Aspartate Amino Transferase 33 U/L (17-59); Bilirubin,Total 0.5 mg/dL (0.2-1.3); Blood Urea Nitrogen 3 mg/dL (9-20); Calcium 6.6 mg/dL (8.4-10.2); Carbon Dioxide 27 mmol/L (22-30); Chloride 103 mmol/L (98-107); Estimated CRCL calculation 93 ml/min; Estimated Glomerular Filt Rate > 60; Glucose 93 mg/dL (65-110); Potassium 2.8 mmol/L (3.4-5.0); Sodium 139 mmol/L (137-145)
[2025-04-11] MEDS: POTASSIUM CHLORIDE 20 MEQ ER TABLET 40 MEQ PO (06:41)
[2025-04-11] MEDS: oxyCODONE HCL (*CRX) 5 MG TAB IR PO ×2 (06:41→20:00)
[2025-04-11] MEDS: POTASSIUM CHLORIDE INJ 40 MEQ in SODIUM CHLORIDE 0.9% IV 500 ML 130 MEQ IVPB ×2 (06:42→11:32)
[2025-04-11] MEDS: POTASSIUM CHLORIDE 20 MEQ PACKET (FOR LIQUID) 40 MEQ PO (09:30)
[2025-04-11] MEDS: PANTOPRAZOLE 40 MG TABLET PO ×2 (09:32→21:32)
[2025-04-11] MEDS: ERGOCALCIFEROL 50,000 UNITS CAPSULE 50000 UNITS PO (09:32)
[2025-04-11] MEDS: ONDANSETRON INJ 4 MG/2 ML VIAL IV PUSH ×2 (10:02→19:09)
--- NOTE | 2025-04-11 13:07 | P.CDI_ITS ---
CDI Query Clarification Request BMI: 23.0 Nutritional Diagnostic Statement: Please refer to the comprehensive nutrition assessment for further information. If you agree with diagnosis of Moderate protein calorie malnutrition related to inadequate energy intake as evidenced by a noted -10% wt loss x 6 months, reduced po intake for greater than 1 month, and NFPE findings for moderate subcutaneous fat loss (cheeks) and severe/moderate muscle wasting (temples, clavicle, calf). Please specify severity if known: * Mild * Moderate * Severe * Other/Unknown <Jud Barry RN - Last Filed: 04/11/25 13:07> Clarified Diagnosis Clarified Diagnosis: Moderate protein calorie malnutrition <Toi Naranjo MD - Last Filed: 04/11/25 13:12>
[2025-04-11 14:12] LABS: Alanine Aminotransferase 19 U/L (6-50); Albumin Level 3.1 g/dL (3.5-5.1); Alkaline Phosphatase 53 U/L (38-126); Anion Gap 4 mmol/L (4-12); Aspartate Amino Transferase 31 U/L (17-59); Bilirubin,Total 0.4 mg/dL (0.2-1.3); Blood Urea Nitrogen 5 mg/dL (9-20); Calcium 6.9 mg/dL (8.4-10.2); Carbon Dioxide 28 mmol/L (22-30); Chloride 106 mmol/L (98-107); Estimated CRCL calculation 98 ml/min; Estimated Glomerular Filt Rate > 60; Glucose 183 mg/dL (65-110); Magnesium 1.6 mg/dL (1.6-2.3); Phosphorus 3.1 mg/dL (2.5-4.5); Potassium 3.4 mmol/L (3.4-5.0); Sodium 138 mmol/L (137-145)
--- NOTE | 2025-04-11 14:28 | PM.IMPN ---
Progress Note: A&P Assessment and Plan (1) Hypocalcemia: Code(s): E83.51 - Hypocalcemia Status: Acute Assessment and Plan: - Ca 5.9 -> 6.9 replaced continue replacedment and monitor (2) Hypomagnesemia: Code(s): E83.42 - Hypomagnesemia Status: Acute Assessment and Plan: - Mag 0.4 -> 0.5 -> 1.2 1.6 today replaced (3) Hypokalemia: Code(s): E87.6 - Hypokalemia Status: Acute Assessment and Plan: - K 4.1 -> 2.0 -> 2.4 resolved 3.4 today monitor (4) History of resection of small bowel: Code(s): Z90.49 - Acquired absence of other specified parts of digestive tract Status: Acute Assessment and Plan: - CTA chest/abdomen/pelvis: Evidence of recent bowel surgery with enterocolonic anastomosis and presumed postoperative haziness about the operative bed region. No abscess or free air. A few mildly distended left upper quadrant small bowel are present, which could reflect residual mild postoperative ileus. Early obstruction not completely excluded, though felt to be less likely overall. Focal asymmetric prominence of the left rectus abdominous muscle, which represents postoperative change and/or evolving small hematoma. No significant abnormality the chest. Clear lungs. No pulmonary embolus. - clear liquid diet - monitor electrolytes - will forgo consult to general surgery as he had a CT this week which was reviewed by his surgeon who did his resection, saw the ileus and it has reportedly gone down Plan Vit D deficiency Vit D level <12 Started on 50k weekly replacement x 2 months monitor FTT/protein energy malnutrition Patient noted that he has been having poor intake the past 2 months since having bowel resection surgery dietitian consulted for diet modification monitor Diet: regular GI Prophylaxis: Pantoprazole p.o. b.i.d. DVT Prophylaxis: SCDs IV fluids: 1L -> 125 mL/hr Lines/Tubes: Peripheral IV Code Status: full code Subjective Date/time seen: 04/11/25 14:28 Interval history: Comfortable at bedside Review of Systems Review of Systems: All systems reviewed & are unremarkable except as noted in HPI and below Exam Narrative: firm golf-ball sized region between LLQ and midline. Const: General: comfortable and no acute distress Other: , male, nontoxic appearance HENMT: Face/Nose/Sinus: Normal nares present Mouth: Yes moist mucous membranes Eyes: General: appearance normal, both eyes and all related structures Sclera: sclerae normal Pupils: Equal, round and reactive pupils present EOM: EOMs intact bilaterally Resp: Effort & Inspection: normal respiratory effort Auscultation: clear to auscultation bilaterally Cardio: Rate: regular rate Rhythm: regular rhythm Other: S1-S2 present without murmur, rub, ectopy GI: Other: Abdomen soft, does have a golf ball size firm region between his left lower quadrant and midline with some tenderness with palpation (consistent with known hematoma). Postoperative incisions healing well, no signs of infection. Hyperactive bowel sounds in all quadrants. Skin: General skin exam: normal color and no rashes or lesions noted Wounds: no wounds Neuro: Cranial nerves: Yes Equal, round and reactive pupils present Speech: normal speech Motor exam (neuro): 5/5 motor strength present throughout Sensory Exam: normal sensation Other: A&O x4 Extrem: General: normal to inspection Psych: Mental Status: mental status grossly normal Affect: normal affect Other: Good insight judgment, very pleasant Objective Data Vital Signs Vital Signs: Vital Signs - 24 hr 04/10/25 14:42 04/10/25 15:02 04/10/25 16:00 Temperature Pulse Rate 78 75 74 Respiratory Rate 12 16 Blood Pressure 139/90 140/93 H Pulse Oximetry 100 100 Oxygen Delivery Fraction of Inspired Oxygen 04/10/25 16:31 04/10/25 18:00 04/10/25 19:39 Temperature 97.6 F 98.6 F Pulse Rate 81 84 84 Respiratory Rate 20 20 Blood Pressure 132/93 H 129/83 Pulse Oximetry 100 97 Oxygen Delivery Fraction of Inspired Oxygen 04/10/25 20:00 04/10/25 20:00 04/10/25 21:20 Temperature Pulse Rate 81 84 76 Respiratory Rate 18 20 Blood Pressure Pulse Oximetry 100 98 Oxygen Delivery Room Air Room Air Fraction of Inspired Oxygen 21 21 04/10/25 22:00 04/10/25 23:54 04/11/25 00:00 Temperature 98.1 F Pulse Rate 88 82 86 Respiratory Rate 18 Blood Pressure 118/76 Pulse Oximetry 100 Oxygen Delivery Fraction of Inspired Oxygen 04/11/25 00:00 04/11/25 02:00 04/11/25 04:00 Temperature Pulse Rate 70 81 74 Respiratory Rate 18 18 Blood Pressure Pulse Oximetry 100 100 Oxygen Delivery Room Air Room Air Fraction of Inspired Oxygen 21 21 04/11/25 04:00 04/11/25 04:27 04/11/25 08:00 Temperature 98.5 F Pulse Rate 74 82 84 Respiratory Rate 15 Blood Pressure 121/60 Pulse Oximetry 99 Oxygen Delivery Fraction of Inspired Oxygen 04/11/25 08:16 04/11/25 10:00 04/11/25 12:00 Temperature 98.2 F 97.8 F Pulse Rate 73 82 75 Respiratory Rate 16 20 Blood Pressure 112/65 138/79 Pulse Oximetry 98 100 Oxygen Delivery Fraction of Inspired Oxygen 04/11/25 12:00 Temperature Pulse Rate 77 Respiratory Rate Blood Pressure Pulse Oximetry Oxygen Delivery Fraction of Inspired Oxygen Intake/Output Intake/Output: Intake & Output 04/08/25 04/09/25 04/10/25 04/11/25 23:59 23:59 23:59 23:59 Intake Total 2560 2944.6 Output Total 1 Balance 2559 2944.6 Meds/Results Medications: Active Medications Generic Name Dose Route Start Last Admin Trade Name Freq PRN Reason Stop Dose Admin Ergocalciferol 1,250 mcg 04/18/25 09:00 Ergocalciferol (Vitamin D2) 1,250 Mcg (50,000 Units) Capsule PO We@0900 ROQUE Sodium Chloride 1,000 mls @ 125 mls/hr 04/10/25 12:35 04/11/25 10:02 Normal Saline Iv IV CONT 125 mls/hr .Q8H ROQUE Administration Lorazepam 0.5 mg 04/10/25 16:22 04/10/25 23:14 Lorazepam (*Crx) 0.5 Mg Tablet PO 0.5 mg TID PRN Administration Muscle Spasm Methocarbamol 500 mg 04/10/25 16:22 04/10/25 21:14 Methocarbamol 500 Mg Tablet PO 500 mg TID PRN Administration Muscle Spasm Miscellaneous Information 0 each 04/10/25 00:01 Promacta = Nonformulary. Can Pt Bring From Home? XX 05/10/25 00:00 CLARIFY ROQUE Non-Formulary Medication 75 mg 04/10/25 21:00 Eltrombopag Olamine [Promacta] PO 05/10/25 20:59 HS ROQUE Ondansetron HCl 4 mg 04/11/25 09:51 04/11/25 10:02 Ondansetron Inj 4 Mg/2 Ml Vial IV PUSH 4 mg Q4H PRN Administration Nausea And Vomiting Oxycodone HCl 5 mg 04/10/25 16:22 04/11/25 06:41 Oxycodone Hcl (*Crx) 5 Mg Tab Ir PO 5 mg Q6H PRN Administration pain Pantoprazole Sodium 40 mg 04/10/25 21:00 04/11/25 09:32 Pantoprazole 40 Mg Tablet PO 40 mg Q12HR ROQUE Administration Radiology Results: ITS Impressions Chest X-Ray 04/10/25 10:50 Impression: Normal chest. Chest/Abdomen/Pelvis CTA 04/10/25 12:03 Impression: Evidence of recent bowel surgery with enterocolonic anastomosis and presumed postoperative haziness about the operative bed region. No abscess or free air. A few mildly distended left upper quadrant small bowel are present, which could reflect residual mild postoperative ileus. Early obstruction not completely excluded, though felt to be less likely overall. Focal asymmetric prominence of the left rectus abdominous muscle, which represents postoperative change and/or evolving small hematoma. No significant abnormality the chest. Clear lungs. No pulmonary embolus. Labs Labs: Laboratory Results - last 24 hr 04/10/25 04/10/25 04/10/25 16:46 20:28 20:28 WBC RBC Hgb Hct MCV MCH MCHC RDW Plt Count MPV Immature Gran % (Auto) Neut % (Auto) Lymph % (Auto) [place] % (Auto) Eos % (Auto) Baso % (Auto) Lymph # (Auto) [place] # (Auto) Eos # (Auto) Baso # (Auto) Abs Immat Gran (auto) Absolute Neuts (auto) Absolute Nucleated RBC Nucleated RBC % Sodium 139 Potassium 2.4 L* Chloride 101 Carbon Dioxide 31 H Anion Gap 7 BUN 5 L Creatinine 0.91 Estim Creat Clear Calc 80 Estimated GFR > 60 Glucose 109 Calcium 5.5 L* Phosphorus 2.4 L Cancelled Magnesium Cancelled Total Bilirubin AST ALT Alkaline Phosphatase Troponin I 0.012 Total Protein Albumin Vitamin D 25-Hydroxy PTH Intact 04/10/25 04/10/25 04/11/25 20:28 20:28 04:34 WBC 3.6 L RBC 3.61 L Hgb 10.1 L Hct 31.6 L MCV 87.5 MCH 28.0 MCHC 32.0 RDW 13.6 Plt Count 102 L MPV 9.7 Immature Gran % (Auto) 0.3 Neut % (Auto) 62.8 Lymph % (Auto) 28.4 [place] % (Auto) 6.5 Eos % (Auto) 1.4 Baso % (Auto) 0.6 Lymph # (Auto) 1.01 [place] # (Auto) 0.2 Eos # (Auto) 0.1 Baso # (Auto) 0.0 Abs Immat Gran (auto) 0.01 Absolute Neuts (auto) 2.2 Absolute Nucleated RBC 0.000 Nucleated RBC % 0.0 Sodium 139 Potassium 2.8 L* Chloride 103 Carbon Dioxide 27 Anion Gap 9 BUN 3 L Creatinine 0.85 Estim Creat Clear Calc 93 Estimated GFR > 60 Glucose 93 Calcium 6.6 L Phosphorus Magnesium 1.2 L 2.0 Total Bilirubin 0.5 AST 33 ALT 20 Alkaline Phosphatase 58 Troponin I Total Protein 6.0 L Albumin 3.3 L Vitamin D 25-Hydroxy < 12.8 Cancelled PTH Intact 38.4 04/11/25 13:56 WBC RBC Hgb Hct MCV MCH MCHC RDW Plt Count MPV Immature Gran % (Auto) Neut % (Auto) Lymph % (Auto) [place] % (Auto) Eos % (Auto) Baso % (Auto) Lymph # (Auto) [place] # (Auto) Eos # (Auto) Baso # (Auto) Abs Immat Gran (auto) Absolute Neuts (auto) Absolute Nucleated RBC Nucleated RBC % Sodium 138 Potassium 3.4 Chloride 106 Carbon Dioxide 28 Anion Gap 4 BUN 5 L Creatinine 0.81 Estim Creat Clear Calc 98 Estimated GFR > 60 Glucose 183 H Calcium 6.9 L Phosphorus 3.1 Magnesium 1.6 Total Bilirubin 0.4 AST 31 ALT 19 Alkaline Phosphatase 53 Troponin I Total Protein 6.0 L Albumin 3.1 L Vitamin D 25-Hydroxy PTH Intact Quality VTE Prophylaxis VTE prophylaxis: mechanical ordered
[2025-04-11] MEDS: MAGNESIUM SULF 2 GM/WATER 50ML 2 GM/50 ML BAG IVPB (16:20)
[2025-04-11] MEDS: CALCIUM CARBONATE (OSCAL) 500 MG TABLET PO (16:21)
[2025-04-11 17:29] LABS: Potassium 3.6 mmol/L (3.4-5.0)
[2025-04-11] MEDS: LORazepam (*CRX) 0.5 MG TABLET PO (21:31)
[2025-04-11] MEDS: methocarbamoL 500 MG TABLET PO (21:32)
[2025-04-12] VITALS (16 sets, daily range): BP systolic 118–150; BP diastolic 65–87; PULSE 68–90; RESP 16–20; TEMP 36.4–36.9; O2SAT 95–100
[2025-04-12] MEDS: SODIUM CHLORIDE 0.9% IV 1,000 ML 125 ML IV CONT (00:11)
[2025-04-12 05:34] LABS: Basophils Percent Auto 0.6 % (0.2-1.2); Eosinophils Absolute Auto 0.1 K/mm3 (0-0.3); Hematocrit 33.1 % (42.0-52.0); Hemoglobin 10.4 g/dL (14.0-18.0); Immature Granulocyte Absolute 0.01 K/mm3 (0.00-0.031); Immature Granulocyte Percent A 0.3 % (0-0.5); Lymphocytes Absolute Auto 1.12 K/mm3 (0.9-3.2); Lymphocytes Percent Auto 32.3 % (18.3-44.2); Mean Corpuscular HGB Conc 31.4 g/dl (32-36); Mean Corpuscular Hemoglobin 27.9 pg (26-34); Mean Corpuscular Volume 88.7 fl (80-100); Monocytes Absolute Auto 0.3 K/mm3 (0.1-0.6); Monocytes Percent Auto 7.5 % (2.6-8.5); Neutrophils Percent Auto 57.3 % (45.5-73.1); Platelet Count Result 105 k/mm3 (150-375); Red Blood Count 3.73 M/mm3 (4.6-6.20); Red Cell Distribution Width 13.5 % (11.5-14.5); White Blood Count 3.5 K/mm3 (4.5-10.0)
[2025-04-12 05:43] LABS: Alanine Aminotransferase 16 U/L (6-50); Albumin Level 3.3 g/dL (3.5-5.1); Alkaline Phosphatase 61 U/L (38-126); Anion Gap 8 mmol/L (4-12); Aspartate Amino Transferase 29 U/L (17-59); Bilirubin,Total 0.5 mg/dL (0.2-1.3); Blood Urea Nitrogen 4 mg/dL (9-20); Calcium 6.9 mg/dL (8.4-10.2); Carbon Dioxide 26 mmol/L (22-30); Chloride 104 mmol/L (98-107); Estimated CRCL calculation 99 ml/min; Estimated Glomerular Filt Rate > 60; Glucose 90 mg/dL (65-110); Magnesium 1.9 mg/dL (1.6-2.3); Potassium 3.1 mmol/L (3.4-5.0); Sodium 138 mmol/L (137-145)
[2025-04-12] MEDS: CALCIUM CARBONATE (OSCAL) 500 MG TABLET PO ×3 (10:38→16:03)
[2025-04-12] MEDS: PANTOPRAZOLE 40 MG TABLET PO ×2 (10:38→21:46)
[2025-04-12] MEDS: POTASSIUM CHLORIDE 20 MEQ ER TABLET 40 MEQ PO (12:26)
[2025-04-12] MEDS: POTASSIUM CHLORIDE INJ 40 MEQ in SODIUM CHLORIDE 0.9% IV 500 ML 130 MEQ IVPB (12:33)
--- NOTE | 2025-04-12 14:00 | PC.NURSE ---
Pt transfer to 256 via wheelchair. RN given report
[2025-04-12] MEDS: oxyCODONE HCL (*CRX) 5 MG TAB IR PO ×2 (16:02→21:46)
--- NOTE | 2025-04-12 17:48 | P.PNIM_ITS ---
Progress Note: A&P Assessment and Plan (1) Hypocalcemia: Code(s): E83.51 - Hypocalcemia Status: Acute Assessment and Plan: - Ca 5.9 -> 6.9 replaced continue replacedment and monitor (2) Hypomagnesemia: Code(s): E83.42 - Hypomagnesemia Status: Acute Assessment and Plan: - Mag 0.4 -> 1.9 replaced (3) Hypokalemia: Code(s): E87.6 - Hypokalemia Status: Acute Assessment and Plan: - K 4.1 -> 2.0 -> 2.4 resolved 3.1 today monitor (4) History of resection of small bowel: Code(s): Z90.49 - Acquired absence of other specified parts of digestive tract Status: Acute Assessment and Plan: - CTA chest/abdomen/pelvis: Evidence of recent bowel surgery with enterocolonic anastomosis and presumed postoperative haziness about the operative bed region. No abscess or free air. A few mildly distended left upper quadrant small bowel are present, which could reflect residual mild postoperative ileus. Early obstruction not completely excluded, though felt to be less likely overall. Focal asymmetric prominence of the left rectus abdominous muscle, which represents postoperative change and/or evolving small hematoma. No significant abnormality the chest. Clear lungs. No pulmonary embolus. - clear liquid diet - monitor electrolytes - will forgo consult to general surgery as he had a CT this week which was reviewed by his surgeon who did his resection, saw the ileus and it has reportedly gone down Plan Vit D deficiency Vit D level <12 Started on 50k weekly replacement x 2 months monitor FTT/protein energy malnutrition Patient noted that he has been having poor intake the past 2 months since having bowel resection surgery dietitian consulted for diet modification Oral intake improving, consuming >50% monitor Diet: regular GI Prophylaxis: Pantoprazole p.o. b.i.d. DVT Prophylaxis: Sq Lovenox Code Status: full code Subjective Date/time seen: 04/12/25 17:48 Interval history: Comfortable at bedside Review of Systems Review of Systems: All systems reviewed & are unremarkable except as noted in HPI and below Exam Narrative: firm golf-ball sized region between LLQ and midline. Const: General: comfortable and no acute distress Other: , male, nontoxic appearance HENMT: Face/Nose/Sinus: Normal nares present Mouth: Yes moist mucous membranes Eyes: General: appearance normal, both eyes and all related structures Sclera: sclerae normal Pupils: Equal, round and reactive pupils present EOM: EOMs intact bilaterally Resp: Effort & Inspection: normal respiratory effort Auscultation: clear to auscultation bilaterally Cardio: Rate: regular rate Rhythm: regular rhythm Other: S1-S2 present without murmur, rub, ectopy GI: Other: Abdomen soft, does have a golf ball size firm region between his left lower quadrant and midline with some tenderness with palpation (consistent with known hematoma). Postoperative incisions healing well, no signs of infection. Hyperactive bowel sounds in all quadrants. Skin: General skin exam: normal color and no rashes or lesions noted Wounds: no wounds Neuro: Cranial nerves: Yes Equal, round and reactive pupils present Speech: normal speech Motor exam (neuro): 5/5 motor strength present throughout Sensory Exam: normal sensation Other: A&O x4 Extrem: General: normal to inspection Psych: Mental Status: mental status grossly normal Affect: normal affect Other: Good insight judgment, very pleasant Objective Data Vital Signs Vital Signs: Vital Signs - 24 hr 04/11/25 18:00 04/11/25 20:00 04/11/25 20:00 Temperature Pulse Rate 79 74 74 Respiratory Rate 20 Blood Pressure Pulse Oximetry 100 Oxygen Delivery Room Air Fraction of Inspired Oxygen 04/11/25 20:02 04/11/25 22:00 04/11/25 23:59 Temperature 97.8 F 98.7 F Pulse Rate 79 72 77 Respiratory Rate 20 20 Blood Pressure 144/89 H 140/88 Pulse Oximetry 100 95 Oxygen Delivery Fraction of Inspired Oxygen 04/12/25 00:00 04/12/25 00:00 04/12/25 02:00 Temperature Pulse Rate 68 68 75 Respiratory Rate 20 Blood Pressure Pulse Oximetry 95 Oxygen Delivery Room Air Fraction of Inspired Oxygen 04/12/25 03:39 04/12/25 04:00 04/12/25 04:00 Temperature 98.4 F Pulse Rate 75 74 74 Respiratory Rate 18 18 Blood Pressure 128/70 Pulse Oximetry 98 98 Oxygen Delivery Room Air Fraction of Inspired Oxygen 04/12/25 06:00 04/12/25 08:00 04/12/25 08:00 Temperature Pulse Rate 78 90 Respiratory Rate Blood Pressure Pulse Oximetry Oxygen Delivery Room Air Fraction of Inspired Oxygen 04/12/25 08:07 04/12/25 10:00 04/12/25 12:00 Temperature 98.3 F Pulse Rate 75 77 Respiratory Rate 16 Blood Pressure 118/65 Pulse Oximetry 99 Oxygen Delivery Room Air Fraction of Inspired Oxygen 04/12/25 12:00 04/12/25 12:06 04/12/25 14:41 Temperature 98.4 F 97.7 F Pulse Rate 80 77 77 Respiratory Rate 18 18 Blood Pressure 137/81 141/87 H Pulse Oximetry 100 100 Oxygen Delivery Fraction of Inspired Oxygen 04/12/25 16:26 Temperature Pulse Rate 85 Respiratory Rate Blood Pressure Pulse Oximetry Oxygen Delivery Fraction of Inspired Oxygen Intake/Output Intake/Output: Intake & Output 04/09/25 04/10/25 04/11/25 04/12/25 23:59 23:59 23:59 23:59 Intake Total 2560 4184.6 2220 Output Total 1 3 Balance 2559 4181.6 2220 Meds/Results Medications: Active Medications Generic Name Dose Route Start Last Admin Trade Name Freq PRN Reason Stop Dose Admin Calcium Carbonate 500 mg 04/11/25 17:00 04/12/25 16:03 Calcium Carbonate (Oscal) 500 Mg Tablet PO 500 mg TIDWM ROQUE Administration Ergocalciferol 1,250 mcg 04/18/25 09:00 Ergocalciferol (Vitamin D2) 1,250 Mcg (50,000 Units) Capsule PO We@0900 [facility] Lorazepam 0.5 mg 04/10/25 16:22 04/11/25 21:31 Lorazepam (*Crx) 0.5 Mg Tablet PO 0.5 mg TID PRN Administration Muscle Spasm Methocarbamol 500 mg 04/10/25 16:22 04/11/25 21:32 Methocarbamol 500 Mg Tablet PO 500 mg TID PRN Administration Muscle Spasm Miscellaneous Information 0 each 04/10/25 00:01 Promacta = Nonformulary. Can Pt Bring From Home? XX 05/10/25 00:00 CLARIFY [facility] Non-Formulary Medication 75 mg 04/10/25 21:00 Eltrombopag Olamine [Promacta] PO 05/10/25 20:59 HS [facility] Ondansetron HCl 4 mg 04/11/25 09:51 04/11/25 19:09 Ondansetron Inj 4 Mg/2 Ml Vial IV PUSH 4 mg Q4H PRN Administration Nausea And Vomiting Oxycodone HCl 5 mg 04/10/25 16:22 04/12/25 16:02 Oxycodone Hcl (*Crx) 5 Mg Tab Ir PO 5 mg Q6H PRN Administration pain Pantoprazole Sodium 40 mg 04/10/25 21:00 04/12/25 10:38 Pantoprazole 40 Mg Tablet PO 40 mg Q12HR ROQUE Administration Radiology Results: ITS Impressions Chest X-Ray 04/10/25 10:50 Impression: Normal chest. Chest/Abdomen/Pelvis CTA 04/10/25 12:03 Impression: Evidence of recent bowel surgery with enterocolonic anastomosis and presumed postoperative haziness about the operative bed region. No abscess or free air. A few mildly distended left upper quadrant small bowel are present, which could reflect residual mild postoperative ileus. Early obstruction not completely excluded, though felt to be less likely overall. Focal asymmetric prominence of the left rectus abdominous muscle, which represents postoperative change and/or evolving small hematoma. No significant abnormality the chest. Clear lungs. No pulmonary embolus. Labs Labs: Laboratory Results - last 24 hr 04/12/25 04:40 WBC 3.5 L RBC 3.73 L Hgb 10.4 L Hct 33.1 L MCV 88.7 MCH 27.9 MCHC 31.4 L RDW 13.5 Plt Count 105 L MPV 10.0 Immature Gran % (Auto) 0.3 Neut % (Auto) 57.3 Lymph % (Auto) 32.3 [place] % (Auto) 7.5 Eos % (Auto) 2.0 Baso % (Auto) 0.6 Lymph # (Auto) 1.12 [place] # (Auto) 0.3 Eos # (Auto) 0.1 Baso # (Auto) 0.0 Abs Immat Gran (auto) 0.01 Absolute Neuts (auto) 2.0 Absolute Nucleated RBC 0.000 Nucleated RBC % 0.0 Sodium 138 Potassium 3.1 L Chloride 104 Carbon Dioxide 26 Anion Gap 8 BUN 4 L Creatinine 0.76 Estim Creat Clear Calc 99 Estimated GFR > 60 Glucose 90 Calcium 6.9 L Magnesium 1.9 Total Bilirubin 0.5 AST 29 ALT 16 Alkaline Phosphatase 61 Total Protein 6.0 L Albumin 3.3 L Quality VTE Prophylaxis VTE prophylaxis: mechanical ordered
[2025-04-12] MEDS: LORazepam (*CRX) 0.5 MG TABLET PO (21:46)
[2025-04-12] MEDS: methocarbamoL 500 MG TABLET PO (21:46)
[2025-04-13] VITALS: PULSE 81
[2025-04-13 03:47] VITALS: BP 120/70; PULSE 75; RESP 17; TEMP 36.9; O2SAT 99
[2025-04-13 04:00] VITALS: PULSE 77
[2025-04-13 05:15] LABS: Basophils Percent Auto 0.6 % (0.2-1.2); Eosinophils Absolute Auto 0.1 K/mm3 (0-0.3); Eosinophils Percent Auto 2.3 % (0-4.4); Hematocrit 32.1 % (42.0-52.0); Hemoglobin 10.1 g/dL (14.0-18.0); Lymphocytes Absolute Auto 1.15 K/mm3 (0.9-3.2); Lymphocytes Percent Auto 32.5 % (18.3-44.2); Mean Corpuscular HGB Conc 31.5 g/dl (32-36); Mean Corpuscular Hemoglobin 28.2 pg (26-34); Mean Corpuscular Volume 89.7 fl (80-100); Mean Platelet Volume 9.7 fl (7.4-10.4); Monocytes Absolute Auto 0.3 K/mm3 (0.1-0.6); Monocytes Percent Auto 7.3 % (2.6-8.5); Neutrophils Percent Auto 57.3 % (45.5-73.1); Platelet Count Result 101 k/mm3 (150-375); Red Blood Count 3.58 M/mm3 (4.6-6.20); Red Cell Distribution Width 13.2 % (11.5-14.5); White Blood Count 3.5 K/mm3 (4.5-10.0)
[2025-04-13 05:26] LABS: Alanine Aminotransferase 16 U/L (6-50); Albumin Level 3.5 g/dL (3.5-5.1); Alkaline Phosphatase 59 U/L (38-126); Anion Gap 8 mmol/L (4-12); Aspartate Amino Transferase 25 U/L (17-59); Bilirubin,Total 0.3 mg/dL (0.2-1.3); Blood Urea Nitrogen 5 mg/dL (9-20); Calcium 7.4 mg/dL (8.4-10.2); Carbon Dioxide 26 mmol/L (22-30); Chloride 103 mmol/L (98-107); Estimated CRCL calculation 98 ml/min; Estimated Glomerular Filt Rate > 60; Glucose 108 mg/dL (65-110); Magnesium 1.6 mg/dL (1.6-2.3); Potassium 3.3 mmol/L (3.4-5.0); Sodium 137 mmol/L (137-145)
[2025-04-13 07:49] LABS: Iron 55 ug/dL (49-181)
[2025-04-13 07:59] LABS: Percent Iron Saturation 23 % (20-50)
[2025-04-13 08:00] VITALS: BP 137/90; PULSE 80; RESP 18; TEMP 36.6; O2SAT 100
[2025-04-13] MEDS: CALCIUM CARBONATE (OSCAL) 500 MG TABLET PO (08:12)
[2025-04-13] MEDS: PANTOPRAZOLE 40 MG TABLET PO (08:12)
[2025-04-13] MEDS: MAGNESIUM SULF 2 GM/WATER 50ML 2 GM/50 ML BAG IVPB (08:12)
[2025-04-13 08:15] VITALS: PULSE 76
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
[2025-04-13 10:43] LABS: Ionized Calcium 4.2 mg/dL (4.7-5.5)
== END 2025-04-13 11:45 | disposition home or self-care (01) | DRG 641 ==
LOC: ANHED 12:34 → ANHIMU 13:31 → ANH2MED 04-13 10:01 → ANHIMU 04-16 11:29
PROVIDERS: Internal Medicine; Student in an Organized Health Care Education/Training Program; Admitting Provider Family Medicine; Emergency Provider Emergency Medicine; PCP Family Medicine; Visit Provider Internal Medicine
DX: E83.51 Hypocalcemia (principal); C95.90 Leukemia, unspecified not having achieved remission; Z94.81 Bone marrow transplant status; Z94.84 Stem cells transplant status; E44.0 Moderate protein-calorie malnutrition; E87.6 Hypokalemia; E83.42 Hypomagnesemia; K21.9 Gastro-esophageal reflux disease without esophagitis; F41.9 Anxiety disorder, unspecified; Z20.822 Contact with and (suspected) exposure to COVID-19; Z90.49 Acquired absence of other specified parts of digestive tract; Z68.23 Body mass index [BMI] 23.0-23.9, adult
CPT/HCPCS: 36415; 71045; 71275; 74177; 80048; 80053; 81003; 82306; 82330; 82728; 83540; 83550; 83690; 83735; 83880; 83970; 84100; 84132; 84484; 85025; 85610; 85730; 87637; 93005; 96361; 96365; 96366; 96367; 96375; 99285; A9270; G0378; J0612; J0613; J2060; J2270; J2405; J3475; J3480; J7030; J7040; Q9967